=== PATIENT | male | born 1965 ===

== ENCOUNTER 2025-01-16 23:46 | Inpatient (IN) | payer OTHER, SELFPAY ==
--- NOTE | ~2025-01-16 | FL_ITS ---
EXAMINATION: XR BARIUM SWALLOW CLINICAL INFORMATION: Esophageal pain, vomiting. COMPARISON: None available. TECHNIQUE: Routine modified barium swallow was performed in upright lateral fluoroscopy following oral administration of various consistencies of barium. FINDINGS: Following oral administration of thin and thick barium in upright view under fluoroscopy there is normal but slow propagation of us from the oral cavity through the pharynx into the distal esophagus. There is moderate food residue seen in the distal esophagus. There is moderate grade narrowing seen in the distal esophagus with mild scalloping suspicious for circular/annular lesion. There is mild distention of the distal esophagus. There is abnormal mucosa mid and distal esophagus likely esophagitis. Solid food coated barium was not attenuated due to moderate food residue in distal esophagus. FLUOROSCOPY TIME: 3 minutes and 18 seconds DOSE AREA PRODUCT: 1986 uGy-m2 (microgray-meter squared) FL/FL barium swallow IMPRESSION: Moderate circumferential narrowing of distal esophagus with minimal distention suspicious for underlying lesion. There is distal and mid esophagitis suspected. The stomach is unremarkable. Recommend endoscopy for further evaluation. Electronically signed by: Bc New MD 01/22/2025 03:46 PM EDT
[2025-01-17 01:13] VITALS: BP 122/79; PULSE 89; RESP 16; TEMP 36.4; O2SAT 96
[2025-01-17 01:16] VITALS: BMI 28.8
--- NOTE | 2025-01-17 01:41 | PC.ADMIT ---
Pt is a 59yo male admitted on a CV from [facility] for treatment of SI. He presents to ED endorsing SI with plan to step into traffic and also have several medical complaints. He reports having pain in his toes, back, stomach and esophagus which he attributed to smoking crack/cocaine and drinking alcohol. Pt reports that he was staying with his daughter but had to leave. Hence, he has been on the streets, using crack/cocaine and drinking alcohol daily. He reports feeling hopeless and helpless, that no one cares about me . On unit admission, Pt was calm and pleasant, anxious and worried about his missing bag/belongings. He states they forget to bring my bag from ED at [facility]. TW called [facility] and they confirmed that Pt bag is with them. Pt declined to participate in the admission process. States I am having abdominal pain and very tired, I want to go to bed now . Pt denies SI/HI/AV/VH. He did not sign/fill any admission paper works/release of information/menu/ my contact lists/statement of understanding of valuable. Skin/safety check was unremarkable, v/s and weight/height done. Treatment plan and safety plans was initiated but yet to be signed. Hospitalist contacted for consultation. Pt reports safe on the unit.
[2025-01-17] MEDS: Magnesium Hydrox/Alum Hydrox 30 ML ORAL.SUSP PO ×2 (08:09→16:40)
[2025-01-17 08:22] VITALS: BP 159/95; PULSE 88; TEMP 36.9; O2SAT 94
[2025-01-17] MEDS: Sertraline HCL 100 MG TABLET PO (08:50)
[2025-01-17 08:57] LABS: Estimated Average Glucose 117 mg/dL; Hemoglobin A1c % 5.7 % (<6.0); Total Hemoglobin (HGBA1C) 3628.4584 umol/L
[2025-01-17] MEDS: Pantoprazole Sodium 20 MG TABLET.DR 40 MG PO ×2 (09:01→21:45)
[2025-01-17 09:05] LABS: Cholesterol 249 mg/dL (<200); HDL Cholesterol 48 mg/dL (>40); LDL Cholesterol Calculated 179 mg/dL (<100); Magnesium 2.5 mg/dL (1.6-2.6); Triglycerides 112 mg/dL (<150)
[2025-01-17 09:52] LABS: Free T4 (Free Thyroxine) 1.17 ng/dL (0.71-1.85); Thyroid Stimulating Hormone 0.36 uIU/mL (0.32-4.0)
[2025-01-17] MEDS: Ondansetron ODT 4 MG TAB.RAPDIS TRANSLINGU (10:01)
[2025-01-17 10:04] LABS: Folate 15.2 ng/mL (> or = 4.0); Vitamin B12 593 pg/mL (200-900)
[2025-01-17 10:51] LABS: MANUAL DIFF FLAG NO
[2025-01-17 10:55] LABS: Basophils Percent Auto 0.3 % (0-2); Eosinophils Absolute Auto 0.1 X10*3/uL (0.0-0.4); Eosinophils Percent Auto 1.2 % (0-4); Hematocrit 38.2 % (42.0-52.0); Hemoglobin 13.1 g/dl (14.0-18.0); Imm Gran Abs Auto 0.08 X10*3/uL (0.00-0.03); Imm Gran Pct Auto 0.7 % (0.0-0.4); Lymphocytes Absolute Auto 1.5 X10*3/uL (1.2-4.9); Mean Corpuscular HGB Conc 34.3 g/dl (31.0-36.0); Mean Corpuscular Hemoglobin 28.7 pg (27.0-33.0); Mean Corpuscular Volume 83.6 fL (80.0-98.0); Mean Platelet Volume 10.5 fL (9.4-12.4); Monocytes Percent Auto 9.4 % (2-11); Neutrophils Absolute Auto 8.1 x10*3/uL (2.0-8.3); Neutrophils Percent Auto 74.4 % (45-73); Platelet Count 391 X10*3/uL (160-400); Red Blood Count 4.57 X10*6/uL (4.60-5.80); White Blood Count 10.9 X10*3/uL (4.8-10.8)
[2025-01-17 11:03] LABS: Amylase 93 U/L (28-100)
[2025-01-17 11:10] LABS: Alanine Aminotransferase 14 U/L (0-40); Albumin Level 3.9 g/dL (3.5-5.0); Alkaline Phosphatase 114 U/L (39-117); Anion Gap 12 (12-20); Aspartate Amino Transferase 25 U/L (5-37); Bilirubin Direct 0.3 mg/dL (0.0-0.5); Bilirubin Total 1.2 mg/dL (0.0-1.0); Blood Urea Nitrogen 20 mg/dL (9-16); Carbon Dioxide 30 mmol/L (22-29); Chloride 91 mmol/L (96-108); Creatinine Clr Calc Pharmacy 110.7; Estimated Glomerular Filt Rate > 60; Glucose Random 111 mg/dL (60-115); Lipase 44 U/L (8-78); Potassium 3.3 mmol/L (3.3-5.1); Sodium 130 mmol/L (135-145); Total Protein 8.1 g/dL (6.5-8.0)
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
[2025-01-17 12:35] VITALS: BP 125/70; PULSE 82; O2SAT 98
--- NOTE | 2025-01-17 13:10 | HO.PM.IMCN ---
History of Present Illness Data of Consult Service Date: 01/17/25 Primary Care Provider: Unknown Physician HPI Reason for consult: Admission H&P Pt is a 59-year-old male with a PMH significant for?erosive esophagitis, cocaine use disorder, alcohol use disorder, GERD, and MDD who is admitted to [facility] psychiatry unit for increasing depression with plan to walk into traffic. Medical consult for admission H&P. ?Pt has been complaining of substernal chest pain and discomfort since early this morning. Has been having nausea and vomiting with p.o. intake. Also complains of hiccups and esophageal discomfort when trying to sleep. Pt apparently has been requesting antibiotics during the day as he believes this will make him feel better. Pt admits to chronic daily alcohol use prior to ED presentation, as well as smoking crack cocaine. Was not eating much prior to admission. Pt also complains of hiccups. No significant SOB or difficulty breathing. Denies fever, chills. No diarrhea. Pt denies tremors, auditory or visual hallucinations, or diaphoresis. Workup at [facility] significant for leukocytosis of 14.02, H&H 13.6/39.3, hyponatremia of 130, and potassium 3.3. CT of abdomen and pelvis negative for acute intra-abdominal pathology, though did show hiatal hernia with distal esophageal wall thickening likely reflecting reflux esophagitis. Labs from today reviewed, significant for hyponatremia of 130, mildly elevated cholesterol at 249, and elevated LDL of 179. T bili 1.2, hepatic function WNL. Renal function WNL. Vital signs reviewed, stable and WNL coli no fever or SIRS criteria. Review of Systems Review of Systems: Negative except for that which is stated in the HPI. [facility] Medical History (Updated 01/17/25 @ 20:54 by ENRIQUETA Jones) Erosive esophagitis GERD (gastroesophageal reflux disease) Social History Household Members: Children Housing: Apartment Do you presently have visiting nurse or other home services: No Patient Tobacco Use Status: Current everyday Tobacco user Tobacco use type: Cigarette Smoked in Last 30 Days: Yes e-Cigarette/Vaping Use: Never Used Patient Interested in Nicotine Replacement: Yes Patient Given Instructions on How to Stop Smoking: No Second Hand Smoke Exposure: No Use of substances other than those prescribed or required for medical reasons: Yes Substance Use Type: Crack/Cocaine Substance Use Frequency: Daily Last Used Substance: Days (ago) Currently Displaying Signs/Symptoms of Drug Intoxication Withdrawal: No (scoring 0, 2 on CIWA) Any prior treatment program specific to substance use: No Have you been hit, kicked, punched, or otherwise hurt by someone within the past year? If so, by whom?: No Do you feel safe in your current relationship?: No Is there a partner from a previous relationship who is making you feel unsafe now?: No Are you made to feel afraid or neglected: No Advance Directives: Yes Advance Directives Information Provided: Yes Advance Directives on File: No Do you have thoughts of harming others: None Do you have a plan to hurt others: No Plan Recently lost weight without trying: No Eating poorly because of decreased appetite: No Nutrition Risks: No Nutritional Risk Poor oral hygiene: No service: No Sexual orientation: Straight/Heterosexual Meds Allergies Allergy/AdvReac Type Severity Reaction Status Date / Time No Known Allergies Allergy Verified 01/16/25 23:14 Active Medications: Current Medications Acetaminophen (Acetaminophen 325 Mg Tablet) 650 mg PO Q6H PRN PRN Reason: Headache/Pain, Scale 1-10 Al Hydroxide/Mg Hydroxide (Magnesium Hydrox/Alum Hydrox 30 Ml Oral.Susp) 30 ml PO Q6H PRN PRN Reason: Heartburn/Nausea Last Admin: 01/17/25 08:09 Dose: 30 ml Baclofen (Baclofen 10 Mg Tablet) 10 mg PO BID PRN PRN Reason: withdrawal sx from cocaine Bismuth Subsalicylate (Bismuth Subsalicylate 262 Mg Tablet) 262 mg PO QID PRN PRN Reason: stomach upset Ergocalciferol (Ergocalciferol (Vitamin D2) 1,250 Mcg Capsule) 1,250 mcg PO Q7D LOU Folic Acid (Folic Acid 1 Mg Tablet) 1 mg PO DAILY LOU Last Admin: 01/17/25 09:00 Dose: Not Given Hydroxyzine HCl (Hydroxyzine Hcl 25 Mg Tablet) 25 mg PO Q6H PRN PRN Reason: mild anxiety Lorazepam (Lorazepam 1 Mg Tablet) 1 mg PO Q2H PRN PRN Reason: ciwa 6-10 Lorazepam (Lorazepam 1 Mg Tablet) 2 mg PO Q2H PRN PRN Reason: ciwa 11+ Magnesium Hydroxide (Milk Of Magnesia 30 Ml Oral.Susp) 30 ml PO DAILY PRN PRN Reason: Constipation Multivitamins/Vitamin C (Multivitamin Tablet) 1 tab PO DAILY [facility] Last Admin: 01/17/25 09:00 Dose: Not Given Nicotine Polacrilex (Nicotine Polacrilex 2 Mg Gum) 4 mg BUCCAL Q2H PRN PRN Reason: Nicotine Cravings Olanzapine (Olanzapine 5 Mg Tablet) 5 mg PO Q4H PRN PRN Reason: Agitation Ondansetron HCl (Ondansetron Odt 4 Mg Tab.Rapdis) 4 mg TRANSLINGU Q8H PRN PRN Reason: Nausea and Vomiting Ondansetron HCl (Ondansetron Odt 4 Mg Tab.Rapdis) 4 mg TRANSLINGU Q6H PRN PRN Reason: Nausea and Vomiting Last Admin: 01/17/25 10:01 Dose: 4 mg Pantoprazole Sodium (Pantoprazole Sodium 20 Mg Tablet.Dr) 40 mg PO BID [facility] Last Admin: 01/17/25 09:01 Dose: 40 mg Sertraline HCl (Sertraline Hcl 100 Mg Tablet) 100 mg PO DAILY [facility] Last Admin: 01/17/25 08:50 Dose: 100 mg Thiamine HCl (Thiamine Hcl 100 Mg Tablet) 100 mg PO DAILY [facility] Last Admin: 01/17/25 09:00 Dose: Not Given Trazodone HCl (Trazodone Hcl 50 Mg Tablet) 50 mg PO BEDTIME MRX1 PRN PRN Reason: Insomnia Home Medications ?Medication ?Instructions ?Recorded ?Confirmed ?Last Taken ?Type bismuth subsalicylate 262 mg/15 mL 262 mg PO Q6-8H PRN Stomach Upset 01/17/25 01/17/25 Unknown History oral suspension (Stomach Relief) ergocalciferol (vitamin D2) 1,250 1,250 mcg PO QWEEK 01/17/25 01/17/25 Unknown History mcg (50,000 unit) capsule esomeprazole magnesium 40 mg 40 mg PO BID 01/17/25 01/17/25 Unknown History capsule,delayed release ondansetron 4 mg disintegrating 4 mg PO Q8H PRN nausea/vomiting 01/17/25 01/17/25 Unknown History tablet sertraline 100 mg tablet 100 mg PO DAILY 01/17/25 01/17/25 Unknown History Physical Exam Vital Signs and Narrative: Vital Signs: Last Vital Signs Temp 98.4 F 01/17/25 08:22 Pulse 88 01/17/25 08:22 Resp 16 01/17/25 01:13 BP 159/95 H 01/17/25 08:22 Pulse Ox 94 01/17/25 08:22 O2 Del Method Room Air 01/17/25 08:22 BMI result Body Mass Index 28.8 General: AOx3, no acute distress Resp: CTA bilaterally CVS: S1, S2, RRR GI: +BS, NT, no distention Skin: Warm, dry Neuro: Cranial nerves II-XII grossly intact bilaterally. Motor grossly intact bilaterally. No tremors or tongue fasciculations noted. Extremities: No edema Psych: Calm, cooperative Results Labs 01/17/25 10:39 01/17/25 10:39 Labs: Laboratory Results - last 24 hr 01/17/25 01/17/25 01/17/25 08:14 10:38 10:39 MCV 83.6 MCH 28.7 MCHC 34.3 RDW 14.0 Plt Count 391 MPV 10.5 Immature Gran % (Auto) 0.7 H Neut % (Auto) 74.4 H Lymph % (Auto) 14.0 L [place] % (Auto) 9.4 Eos % (Auto) 1.2 Baso % (Auto) 0.3 Lymph # (Auto) 1.5 [place] # (Auto) 1.0 Eos # (Auto) 0.1 Baso # (Auto) 0.0 Abs Immat Gran (auto) 0.08 H Absolute Neuts (auto) 8.1 Absolute Nucleated RBC 0.000 Nucleated RBC % (auto) 0.0 Anion Gap 12 Estim Creat Clear Calc 110.7 Estimated GFR > 60 Random Glucose 111 Estimat Average Glucose 117 Hemoglobin A1c % 5.7 Calcium 9.0 Magnesium 2.5 Total Bilirubin 1.2 H Direct Bilirubin 0.3 AST 25 ALT 14 Alkaline Phosphatase 114 Total Protein 8.1 H Albumin 3.9 Triglycerides 112 Cholesterol 249 H LDL Cholesterol, Calc 179 H HDL Cholesterol 48 Amylase 93 Lipase 44 Vitamin B12 593 Folate 15.2 TSH 0.36 Free T4 1.17 Assessment and Plan (1) Medical clearance for psychiatric admission: Status: Acute Plan Pt is a 59-year-old male with a PMH significant for?erosive esophagitis, cocaine use disorder, alcohol use disorder, GERD, and MDD who is admitted to [facility] psychiatry unit for increasing depression with plan to walk into traffic. Medical consult for admission H&P. ? Mood disorder Plan as per psychiatry Acute on chronic erosive esophagitis Pt complains of substernal chest pain/burning, N/V Has been drinking heavily, smoking crack, not eating CT of abdomen pelvis on 01/16/2025 negative for acute abnormality, though did show a hiatal hernia and distal esophageal wall thickening Will treat with dual therapy of famotidine 20 mg b.i.d. and pantoprazole 40 mg b.i.d. Ondansetron Pt encouraged to drink water rather than juice for now Hyponatremia Patient's sodium 130, similar to previous labs Likely secondary to GI losses from N/V Will recheck labs on 01/19 Alcohol use disorder Does not appear to be in acute withdrawal Continue Ativan withdrawal protocol Monitor on CIWA Plan as per Addiction Medicine, Psychiatry Cocaine use disorder Plan as per Addiction Medicine, Psychiatry Thank you for allowing us to participate in the care of this patient. Signing off at this time. Please re-consult if any acute complaints or issues arise.
[2025-01-17 16:00] VITALS: BP 132/82; PULSE 88; TEMP 36.6; O2SAT 99
[2025-01-17] MEDS: LORazepam 1 MG TABLET PO ×2 (16:14→21:40)
[2025-01-17] MEDS: Famotidine 20 MG TABLET PO (19:10)
[2025-01-17] MEDS: Ondansetron ODT 8 MG TAB.RAPDIS TRANSLINGU (19:14)
[2025-01-17 19:55] VITALS: BP 131/82; PULSE 83; RESP 18; TEMP 36.9; O2SAT 98
[2025-01-17] MEDS: hydrOXYzine HCL 25 MG TABLET PO (21:41)
[2025-01-17] MEDS: traZODone HCL 50 MG TABLET PO (21:41)
[2025-01-18 07:00] VITALS: BMI 29.1
[2025-01-18 08:30] VITALS: BP 128/74; PULSE 86; RESP 16; TEMP 36.8; O2SAT 98
[2025-01-18] MEDS: Pantoprazole Sodium 20 MG TABLET.DR 40 MG PO ×2 (08:35→20:27)
[2025-01-18] MEDS: Sertraline HCL 100 MG TABLET PO (08:36)
[2025-01-18] MEDS: Famotidine 20 MG TABLET PO ×2 (08:36→20:27)
--- NOTE | 2025-01-18 08:54 | PC.NURSE ---
pt witnessed vomiting several times after receiving morning scheduled medication and eating breakfast. Pt reports 6/10 abdominal pain and denies it is related to ETOH withdrawal. Provider notified. Will continue to monitor
[2025-01-18] MEDS: Ondansetron ODT 4 MG TAB.RAPDIS TRANSLINGU ×2 (09:14→10:43)
[2025-01-18] MEDS: Baclofen 10 MG TABLET PO ×2 (09:14→18:50)
[2025-01-18] MEDS: hydrOXYzine HCL 25 MG TABLET PO ×2 (09:14→18:50)
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
[2025-01-18] MEDS: Bismuth Subsalicylate 262 MG TABLET PO ×2 (10:43→15:18)
[2025-01-18] MEDS: Magnesium Hydrox/Alum Hydrox 30 ML ORAL.SUSP PO ×3 (10:45→20:26)
[2025-01-18] MEDS: Sucralfate 1 GM TABLET PO ×2 (12:25→15:56)
[2025-01-18] MEDS: Milk of Magnesia 30 ML ORAL.SUSP PO (13:31)
--- NOTE | 2025-01-18 14:19 | PC.NURSE ---
unable to administer prochloperazine as med is not available in [place]. Called pharmacy and awaiting stock.
[2025-01-18] MEDS: Prochlorperazine Maleate 5 MG TABLET 10 MG PO (14:24)
[2025-01-18] MEDS: Acetaminophen 325 MG TABLET 650 MG PO (15:56)
[2025-01-18] MEDS: LORazepam 1 MG TABLET PO (15:56)
[2025-01-18] MEDS: oxyCODONE HCl Immed Release 5 MG TABLET PO (16:10)
[2025-01-18] MEDS: Ondansetron ODT 8 MG TAB.RAPDIS TRANSLINGU ×2 (17:07→20:27)
[2025-01-18] MEDS: OLANZapine 5 MG TABLET PO (18:50)
[2025-01-18 20:00] VITALS: BP 121/84; PULSE 84; RESP 20; TEMP 36.6; O2SAT 100
[2025-01-18] MEDS: LORazepam 1 MG TABLET 2 MG PO (20:26)
[2025-01-18] MEDS: traZODone HCL 50 MG TABLET PO (20:27)
[2025-01-19] MEDS: Sucralfate 1 GM TABLET PO (07:24)
[2025-01-19 07:54] LABS: Hematocrit 41.1 % (42.0-52.0); Hemoglobin 13.8 g/dl (14.0-18.0); Mean Corpuscular HGB Conc 33.6 g/dl (31.0-36.0); Mean Corpuscular Hemoglobin 28.8 pg (27.0-33.0); Mean Corpuscular Volume 85.8 fL (80.0-98.0); Mean Platelet Volume 11.1 fL (9.4-12.4); Platelet Count 378 X10*3/uL (160-400); Red Blood Count 4.79 X10*6/uL (4.60-5.80); Red Cell Distribution Width 13.9 % (11.0-16.0); White Blood Count 8.2 X10*3/uL (4.8-10.8)
[2025-01-19 08:00] VITALS: BP 142/91; PULSE 84; RESP 16; TEMP 36.4; O2SAT 99
[2025-01-19 08:41] LABS: Anion Gap 18 (12-20); Blood Urea Nitrogen 17 mg/dL (9-16); Carbon Dioxide 29 mmol/L (22-29); Chloride 90 mmol/L (96-108); Glucose Random 183 mg/dL (60-115); Potassium 3.2 mmol/L (3.3-5.1); Sodium 134 mmol/L (135-145)
[2025-01-19 08:49] LABS: Creatinine Clr Calc Pharmacy 69.1; Estimated Glomerular Filt Rate 54
[2025-01-19] MEDS: Famotidine 20 MG TABLET PO ×2 (08:49→19:59)
[2025-01-19] MEDS: Pantoprazole Sodium 20 MG TABLET.DR 40 MG PO ×2 (08:49→19:59)
[2025-01-19] MEDS: Magnesium Hydrox/Alum Hydrox 30 ML ORAL.SUSP PO ×3 (08:50→22:47)
[2025-01-19] MEDS: Ondansetron ODT 8 MG TAB.RAPDIS TRANSLINGU ×2 (08:52→15:06)
[2025-01-19] MEDS: Sertraline HCL 50 MG TABLET PO (09:49)
[2025-01-19] MEDS: Baclofen 10 MG TABLET PO ×3 (09:49→19:59)
[2025-01-19] MEDS: oxyCODONE HCl Immed Release 5 MG TABLET PO ×2 (10:48→19:59)
--- NOTE | 2025-01-19 12:31 | P.CNGI_ITS ---
History of Present Illness Data of Consult Service Date: 01/19/25 Primary Care Provider: Unknown Physician HPI Reason for consult: reflux and odynophagia 59-year-old male with history of MDD, PTSD, cocaine use disorder and alcohol use disorder who [facility] seeing for issues with painful swallowing Patient was initially admitted with SI He has a hx of substance abuse and taking cocaine with alcohol daily. He had also been c/o nausea, poor appetite, with burping with pain on swallowing foods and water. he also noted constipation. He said he had EGD several weeks ago for same issues and was given meds to take for 2 weeks due to an infection. Compliance is uncertain based on his history. He denies melena, rectal bleeding, or coughing with sputum. He does notice worsening GERD sx and been placed on PPI and H2 brandi in house. Review of Systems 2 Review of Systems: Constitutional : No Weight loss, No Fever, No Chills ENT/Mouth : No sore throat, No Rhinorrhea Eyes: No Swelling, No Redness Cardiovascular : No Chest Pain, No SOB, No Edema Respiratory : No Cough, No Sputum, No Wheezing Gastrointestinal : see HPI Genitourinary : NO Dysuria, No Urinary Frequency, No Hematuria, No Urgency Musculoskeletal : no joint pain, No Myalgias, No Joint Swelling Skin : No Skin Lesions, eczema ---skin adrianne hands Neuro : No Weakness, No Numbness, No Dizziness, No Headache Psych : No Anxiety/Panic, No Depression Heme/Lymph: No Bruising, No Lymphadenopathy Endocrine : No Polyuria, No Polydipsia All other systems reviewed and are negative. [facility] Past Medical History Medical History (Updated 01/18/25 @ 11:45 by Brian Rabago MD) Homeless Erosive esophagitis GERD (gastroesophageal reflux disease) Family History Pertinent family history: no fh of esophgeal disease like cancer etc Social History Social History Household Members: Children Housing: Apartment Do you presently have visiting nurse or other home services: No Patient Tobacco Use Status: Current everyday Tobacco user Tobacco use type: Cigarette Smoked in Last 30 Days: Yes e-Cigarette/Vaping Use: Never Used Patient Interested in Nicotine Replacement: Yes Patient Given Instructions on How to Stop Smoking: No Second Hand Smoke Exposure: No Use of substances other than those prescribed or required for medical reasons: Yes Substance Use Type: Crack/Cocaine Substance Use Frequency: Daily Last Used Substance: Days (ago) Currently Displaying Signs/Symptoms of Drug Intoxication Withdrawal: No Any prior treatment program specific to substance use: No Have you been hit, kicked, punched, or otherwise hurt by someone within the past year? If so, by whom?: No Do you feel safe in your current relationship?: No Is there a partner from a previous relationship who is making you feel unsafe now?: No Are you made to feel afraid or neglected: No Advance Directives: Yes Advance Directives Information Provided: Yes Advance Directives on File: No Do you have thoughts of harming others: None Do you have a plan to hurt others: No Plan Recently lost weight without trying: No Eating poorly because of decreased appetite: No Nutrition Risks: No Nutritional Risk Poor oral hygiene: No service: No Sexual orientation: Straight/Heterosexual Meds Allergies Allergy/AdvReac Type Severity Reaction Status Date / Time No Known Allergies Allergy Verified 01/16/25 23:14 Active Medications: Current Medications Acetaminophen (Acetaminophen 325 Mg Tablet) 650 mg PO Q6H PRN PRN Reason: Headache/Pain, Scale 1-10 Last Admin: 01/18/25 15:56 Dose: 650 mg Al Hydroxide/Mg Hydroxide (Magnesium Hydrox/Alum Hydrox 30 Ml Oral.Susp) 30 ml PO Q6H PRN PRN Reason: Heartburn/Nausea Last Admin: 01/19/25 08:50 Dose: 30 ml Baclofen (Baclofen 10 Mg Tablet) 10 mg PO BID PRN PRN Reason: withdrawal sx from cocaine Last Admin: 01/19/25 09:49 Dose: 10 mg Bismuth Subsalicylate (Bismuth Subsalicylate 262 Mg Tablet) 262 mg PO QID PRN PRN Reason: stomach upset Last Admin: 01/18/25 15:18 Dose: 262 mg Ergocalciferol (Ergocalciferol (Vitamin D2) 1,250 Mcg Capsule) 1,250 mcg PO Q7D [facility] Famotidine (Famotidine 20 Mg Tablet) 20 mg PO BID [facility] Last Admin: 01/19/25 08:49 Dose: 20 mg Fluconazole (Fluconazole 100 Mg Tablet) 100 mg PO DAILY [facility] Folic Acid (Folic Acid 1 Mg Tablet) 1 mg PO DAILY [facility] Last Admin: 01/19/25 08:53 Dose: Not Given Hydroxyzine HCl (Hydroxyzine Hcl 25 Mg Tablet) 25 mg PO Q6H PRN PRN Reason: mild anxiety Last Admin: 01/18/25 18:50 Dose: 25 mg Lorazepam (Lorazepam 1 Mg Tablet) 1 mg PO Q2H PRN PRN Reason: ciwa 6-10 Last Admin: 01/18/25 15:56 Dose: 1 mg Lorazepam (Lorazepam 1 Mg Tablet) 2 mg PO Q2H PRN PRN Reason: ciwa 11+ Last Admin: 01/18/25 20:26 Dose: 2 mg Magnesium Hydroxide (Milk Of Magnesia 30 Ml Oral.Susp) 30 ml PO DAILY PRN PRN Reason: Constipation Last Admin: 01/18/25 13:31 Dose: 30 ml Multivitamins/Vitamin C (Multivitamin Tablet) 1 tab PO DAILY [facility] Last Admin: 01/19/25 08:53 Dose: Not Given Nicotine Polacrilex (Nicotine Polacrilex Lozenge 4 Mg Lozenge) 4 mg BUCCAL Q2H PRN PRN Reason: Nicotine Cravings Olanzapine (Olanzapine 5 Mg Tablet) 5 mg PO Q4H PRN PRN Reason: Agitation Last Admin: 01/18/25 18:50 Dose: 5 mg Ondansetron HCl (Ondansetron Odt 8 Mg Tab.Rapdis) 8 mg TRANSLINGU Q6H PRN PRN Reason: Nausea and Vomiting Last Admin: 01/19/25 08:52 Dose: 8 mg Oxycodone HCl (Oxycodone Hcl Immed Release 5 Mg Tablet) 5 mg PO Q8H PRN PRN Reason: severe abdominal pain Pantoprazole Sodium (Pantoprazole Sodium 20 Mg Tablet.Dr) 40 mg PO BID [facility] Last Admin: 01/19/25 08:49 Dose: 40 mg Sertraline HCl (Sertraline Hcl 50 Mg Tablet) 50 mg PO DAILY [facility] Last Admin: 01/19/25 09:49 Dose: 50 mg Sucralfate (Sucralfate Oral Suspension 1 Gm/10 Ml Oral.Susp) 1 gm PO QIDACHS [facility] Thiamine HCl (Thiamine Hcl 100 Mg Tablet) 100 mg PO DAILY [facility] Last Admin: 01/19/25 08:53 Dose: Not Given Trazodone HCl (Trazodone Hcl 50 Mg Tablet) 50 mg PO BEDTIME MRX1 PRN PRN Reason: Insomnia Last Admin: 01/18/25 20:27 Dose: 50 mg Home Medications ?Medication ?Instructions ?Recorded ?Confirmed ?Last Taken ?Type bismuth subsalicylate 262 mg/15 mL 262 mg PO Q6-8H PRN Stomach Upset 01/17/25 01/17/25 Unknown History oral suspension (Stomach Relief) ergocalciferol (vitamin D2) 1,250 1,250 mcg PO QWEEK 01/17/25 01/17/25 Unknown History mcg (50,000 unit) capsule esomeprazole magnesium 40 mg 40 mg PO BID 01/17/25 01/17/25 Unknown History capsule,delayed release ondansetron 4 mg disintegrating 4 mg PO Q8H PRN nausea/vomiting 01/17/25 01/17/25 Unknown History tablet sertraline 100 mg tablet 100 mg PO DAILY 01/17/25 01/17/25 Unknown History Physical Exam 2 Vital Signs: Vital Signs: Last Vital Signs Temp 97.5 F 01/19/25 08:00 Pulse 84 01/19/25 08:00 Resp 16 01/19/25 08:00 BP 142/91 H 01/19/25 08:00 Pulse Ox 99 01/19/25 08:00 O2 Del Method Room Air 01/18/25 20:00 BMI result Body Mass Index 29.1 EXAM: GENERAL: The patient is well developed and nontoxic. VITAL SIGNS:see workflow HEENT: Nonicteric sclerae, PERRLA, EOMI. Oropharynx clear. Moist mucous membranes. Conjunctivae appear well perfused. No thyroid mass. CHEST: Chest wall is nontender. HEART: Regular rate and rhythm without murmurs. LUNGS: Clear to auscultation bilaterally. ABDOMEN: Soft, positive bowel sounds, nontender, no organomegaly.no flank tenderness SKIN: macular rash on hands NEUROLOGIC: Cranial nerves II-XII intact without motor/sensory deficit. Psych: normal affect Results Labs 01/19/25 07:20 01/19/25 07:20 Labs: Short CBC 01/19/25 Range/Units 07:20 WBC 8.2 (4.8-10.8) X10*3/uL Hgb 13.8 L (14.0-18.0) g/dl Hct 41.1 L (42.0-52.0) % Plt Count 378 (160-400) X10*3/uL BMP 01/19/25 07:20 Sodium 134 L Potassium 3.2 L Chloride 90 L Carbon Dioxide 29 BUN 17 H Creatinine 1.35 Calcium 9.0 Assessment and Plan (1) Erosive esophagitis: Status: Acute Plan 1/ Patient may have severe erosive esophagitis , possible candidiasis as well and had recent EGD in [place] for sx as noted in HPI PLAN: 1/ Recommend r/o HIV--lab ordered 2/ fluconazole for 3 weeks, 200 mg D#1 then 100 mg thereafter 3/ change to liquid sucralfate 4/ if no better in the next 3-4 days then can consider EGD vs barium swallow, meantime soft diet Procedures Date of Service Date of Service: 01/19/25
--- NOTE | 2025-01-19 13:15 | P.PNPSI_ITS ---
Subjective Subjective Date of Service: 01/19/25 Reason For Visit: Unspecified Depressive Disorder, F10.90 Alcohol Interim History: Met with patient; discussed with team; discussed with GI consult Patient remains with abdominal pain, nauseous, vomitus. Appreciate GI consult who added medications and advised; see treatment plan Patient grateful for added medication. Patient reports mood is better today and no SI at all. Patient says that when he is sober, he does well he wants to go to a program. Says he has been off medications over the past few weeks while using but normally Zoloft helps. Mental Status Exam Mental Status Exam Narrative: Pt is alert and oriented; behavior is cooperative; patient c/o abdominal pain; dressed in hospital attire, disheveled; mood is described as little better and affect congruent; eye contact appropriate; Speech is normal rate, volume and prosody and not pressured; no psychomotor agitation/retardation present; thought process is organized and goal directed; Thought content is on abdominal pain; otherwise pertinent to relevant topics and without any delusional content, paranoid ideations or grandiosity; denies any SI/HI. Denies AVH and there is no evidence of perceptual disturbance. Patients insight and judgment appear intact. Diagnostics Vital Signs (24Hr): Vital Signs - 24 hr 01/18/25 20:00 01/19/25 08:00 Temperature 97.9 F 97.5 F Pulse Rate 84 84 Respiratory Rate 20 16 Blood Pressure 121/84 142/91 H Pulse Oximetry 100 99 Oxygen Delivery Method Room Air BMI result Body Mass Index 29.1 Labs 01/19/25 07:20 01/19/25 07:20 Labs: Laboratory Results - last 48 hr 01/19/25 07:20 WBC 8.2 RBC 4.79 Hgb 13.8 L Hct 41.1 L MCV 85.8 MCH 28.8 MCHC 33.6 RDW 13.9 Plt Count 378 MPV 11.1 Absolute Nucleated RBC 0.000 Nucleated RBC % (auto) 0.0 Sodium 134 L Potassium 3.2 L Chloride 90 L Carbon Dioxide 29 Anion Gap 18 BUN 17 H Creatinine 1.35 Estim Creat Clear Calc 69.1 Estimated GFR 54 Random Glucose 183 H Calcium 9.0 Medications Medications Current Medications Acetaminophen (Acetaminophen 325 Mg Tablet) 650 mg PO Q6H PRN PRN Reason: Headache/Pain, Scale 1-10 Last Admin: 01/18/25 15:56 Dose: 650 mg Al Hydroxide/Mg Hydroxide (Magnesium Hydrox/Alum Hydrox 30 Ml Oral.Susp) 30 ml PO Q6H PRN PRN Reason: Heartburn/Nausea Last Admin: 01/19/25 08:50 Dose: 30 ml Baclofen (Baclofen 10 Mg Tablet) 10 mg PO BID PRN PRN Reason: withdrawal sx from cocaine Last Admin: 01/19/25 09:49 Dose: 10 mg Bismuth Subsalicylate (Bismuth Subsalicylate 262 Mg Tablet) 262 mg PO QID PRN PRN Reason: stomach upset Last Admin: 01/18/25 15:18 Dose: 262 mg Ergocalciferol (Ergocalciferol (Vitamin D2) 1,250 Mcg Capsule) 1,250 mcg PO Q7D [facility]OU Famotidine (Famotidine 20 Mg Tablet) 20 mg PO BID [facility] Last Admin: 01/19/25 08:49 Dose: 20 mg Fluconazole (Fluconazole 100 Mg Tablet) 100 mg PO DAILY [facility] Folic Acid (Folic Acid 1 Mg Tablet) 1 mg PO DAILY [facility] Last Admin: 01/19/25 08:53 Dose: Not Given Hydroxyzine HCl (Hydroxyzine Hcl 25 Mg Tablet) 25 mg PO Q6H PRN PRN Reason: mild anxiety Last Admin: 01/18/25 18:50 Dose: 25 mg Lorazepam (Lorazepam 1 Mg Tablet) 1 mg PO Q2H PRN PRN Reason: ciwa 6-10 Last Admin: 01/18/25 15:56 Dose: 1 mg Lorazepam (Lorazepam 1 Mg Tablet) 2 mg PO Q2H PRN PRN Reason: ciwa 11+ Last Admin: 01/18/25 20:26 Dose: 2 mg Magnesium Hydroxide (Milk Of Magnesia 30 Ml Oral.Susp) 30 ml PO DAILY PRN PRN Reason: Constipation Last Admin: 01/18/25 13:31 Dose: 30 ml Multivitamins/Vitamin C (Multivitamin Tablet) 1 tab PO DAILY [facility] Last Admin: 01/19/25 08:53 Dose: Not Given Nicotine Polacrilex (Nicotine Polacrilex Lozenge 4 Mg Lozenge) 4 mg BUCCAL Q2H PRN PRN Reason: Nicotine Cravings Olanzapine (Olanzapine 5 Mg Tablet) 5 mg PO Q4H PRN PRN Reason: Agitation Last Admin: 01/18/25 18:50 Dose: 5 mg Ondansetron HCl (Ondansetron Odt 8 Mg Tab.Rapdis) 8 mg TRANSLINGU Q6H PRN PRN Reason: Nausea and Vomiting Last Admin: 01/19/25 08:52 Dose: 8 mg Oxycodone HCl (Oxycodone Hcl Immed Release 5 Mg Tablet) 5 mg PO Q8H PRN PRN Reason: severe abdominal pain Pantoprazole Sodium (Pantoprazole Sodium 20 Mg Tablet.Dr) 40 mg PO BID [facility] Last Admin: 01/19/25 08:49 Dose: 40 mg Sertraline HCl (Sertraline Hcl 50 Mg Tablet) 50 mg PO DAILY [facility] Last Admin: 01/19/25 09:49 Dose: 50 mg Sucralfate (Sucralfate Oral Suspension 1 Gm/10 Ml Oral.Susp) 1 gm PO QIDACHS [facility] Thiamine HCl (Thiamine Hcl 100 Mg Tablet) 100 mg PO DAILY [facility] Last Admin: 01/19/25 08:53 Dose: Not Given Trazodone HCl (Trazodone Hcl 50 Mg Tablet) 50 mg PO BEDTIME MRX1 PRN PRN Reason: Insomnia Last Admin: 01/18/25 20:27 Dose: 50 mg Allergies Allergies Allergy/AdvReac Type Severity Reaction Status Date / Time No Known Allergies Allergy Verified 01/16/25 23:14 Assessment & Plan Assessment & Plan (1) MDD (major depressive disorder), recurrent episode, moderate: Status: Acute Code(s): F33.1 - Major depressive disorder, recurrent, moderate (2) PTSD (post-traumatic stress disorder): Status: Acute Code(s): F43.10 - Post-traumatic stress disorder, unspecified (3) Cocaine use disorder: Status: Acute Code(s): F14.10 - Cocaine abuse, uncomplicated (4) Alcohol use disorder: Status: Acute Code(s): F10.90 - Alcohol use, unspecified, uncomplicated (5) Erosive esophagitis: Status: Acute Code(s): K22.10 - Ulcer of esophagus without bleeding Plan HPI: Patient is a 59-year-old male with history of MDD, PTSD, cocaine use disorder and alcohol use disorder who presented to ER due to suicidal ideation with plan to walk into traffic secondary to life stressors. Per crisis report, patient presented to ER endorsing suicidal ideation with plan to step into traffic as 1 0 several medical complaints. Patient reports he has been on the streets and has been using crack/cocaine and drinking alcohol daily. Patient reports feeling hopeless and helpless. He reports his grandson and daughter the big it is 2 turns to suicide but feels that maybe they would be better off without him. Patient has a history of suicidal thoughts but denies history of attempts. Patient reports that his nephew was shot and wounded a few days ago and when he found out he had thoughts of wanting to hurt the people who did this to him but did not have a plan or intent to do so. History of multiple inpatient psychiatric hospitalizations. Patient reports he has been drinking 1- 2 pt of vodka daily and smoking 2-3 g of crack cocaine daily. U tox positive for cocaine. Patient has a prescriber via telehealth. Denies VH/AH. He reports poor sleep and appetite. During admission assessment, patient presents alert and oriented x3. Calm and cooperative. Patient reports feeling depressed; patient stated, I need to work on my depression. I need help working through my trauma . Patient reports he feels his current medications are helpful but needs to work through his trauma . He is requesting to be referred to a CSS. Denies SI/HI/VH/AH. Patient complaining of abdominal pain and acid reflux. He reports some nausea. Hospital consult placed. Hospital course: c/o abdominal pain; labs, recent CT unremarkable; possibly gastritis/esophagitis and GI consult pending given short trial oxy 5mg for abdomnial pain -mild hyponatremia likely due to vomiting 4/4 Patient remains with abdominal pain, nauseous, vomitus. Appreciate GI consult who added medications and advised; see treatment plan Patient grateful for added medication. Patient reports mood is better today and no SI at all. Patient says that when he is sober, he does well he wants to go to a program. Says he has been off medications over the past few weeks while using but normally Zoloft helps. 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 PLAN: cv q15 min lowered Zoloft to 50mg (down from 100mg) oxy prn [facility] GI consult for ongoing abdominal pain GI consult: He had also been c/o nausea, poor appetite, with burping with pain on swallowing foods and water. he also noted constipation. He said he had EGD several weeks ago for same issues and was given meds to take for 2 weeks due to an infection. Compliance is uncertain based on his history. He denies melena, rectal bleeding, or coughing with sputum. He does notice worsening GERD sx and been placed on PPI and H2 brandi in house. 1/ Patient may have severe erosive esophagitis , possible candidiasis as well and had recent EGD in [place] for sx as noted in HPI PLAN: 1/ Recommend r/o HIV--lab ordered 2/ fluconazole for 3 weeks, 200 mg D#1 then 100 mg thereafter 3/ change to liquid sucralfate 4/ if no better in the next 3-4 days then can consider EGD vs barium swallow, meantime soft diet Patient educated on: diagnosis, medication risk/benefits, substance abuse and medical condition Informed Consent: understands Reason for continued inpatient stay Substantial Risk for: rapid decompensation Time Spent With Patient Time: Total time managing care of this patient today ____ minutes.
[2025-01-19] MEDS: Potassium Chloride Packet 20 MEQ PACKET 40 MEQ PO (15:05)
[2025-01-19] MEDS: Sucralfate Oral Suspension 1 GM/10 ML ORAL.SUSP PO ×2 (17:52→19:59)
[2025-01-19 20:00] VITALS: BP 138/83; PULSE 71; RESP 16; TEMP 36.6; O2SAT 97
[2025-01-19] MEDS: Bismuth Subsalicylate 262 MG TABLET PO (22:47)
[2025-01-20 07:23] LABS: HIV AB/AG Nonreactive (Nonreactive); HIV Num 1 0.06 S/CO (0.00-0.99)
[2025-01-20 07:59] VITALS: BP 131/104; PULSE 68; RESP 16; TEMP 36.4; O2SAT 98
[2025-01-20] MEDS: Baclofen 10 MG TABLET PO ×3 (08:02→21:29)
[2025-01-20] MEDS: Famotidine 20 MG TABLET PO ×2 (08:02→21:29)
[2025-01-20] MEDS: Sertraline HCL 50 MG TABLET PO (08:02)
[2025-01-20] MEDS: Pantoprazole Sodium 20 MG TABLET.DR 40 MG PO ×2 (08:02→21:29)
[2025-01-20] MEDS: Aspirin Enteric Coated 81 MG TABLET.DR PO (08:02)
[2025-01-20] MEDS: Fluconazole 100 MG TABLET PO (08:03)
[2025-01-20] MEDS: oxyCODONE HCl Immed Release 5 MG TABLET PO ×2 (08:05→23:02)
[2025-01-20 10:23] LABS: Anion Gap 13 (12-20); Blood Urea Nitrogen 22 mg/dL (9-16); Calcium 8.9 mg/dL (8.4-10.2); Carbon Dioxide 31 mmol/L (22-29); Chloride 94 mmol/L (96-108); Creatinine Clr Calc Pharmacy 68.1; Estimated Glomerular Filt Rate 53; Glucose Random 110 mg/dL (60-115); Potassium 3.5 mmol/L (3.3-5.1); Sodium 134 mmol/L (135-145)
[2025-01-20] MEDS: Sucralfate Oral Suspension 1 GM/10 ML ORAL.SUSP PO ×3 (10:44→22:58)
--- NOTE | 2025-01-20 11:34 | PM.EVENT ---
Event Note Date of Service: 01/20/25 Event Note: Follow up for pt complaining of epigastric and esophageal pain as well as nausea and vomiting and reduced p.o. intake. Pt seen and evaluated by GI yesterday who recommended fluconazole x3 weeks, liquid sucralfate, and magic mouthwash swish and swallow p.r.n.. Labs reviewed which indicate elevated creatinine of 1.37 and mild hyponatremia of 134, likely secondary to reduced p.o. intake and GI losses from N/V. HIV nonreactive. Pt has continued to complain of 7/10 pain, burping, and vomiting with p.o. intake. Pt has been given oxycodone intermittently with minimal relief of symptoms. Continue above treatments. Will also give pt 1 L lactated Ringer's for elevated creatinine. If patient's symptoms persist for the next 2-3 days would suggest reaching back out to GI to arrange for possible EGD vs barium swallow. Time Spent With Patient Time: Total time managing care of this patient today ____ minutes.
--- NOTE | 2025-01-20 11:52 | P.PNPSI_ITS ---
Subjective Subjective Date of Service: 01/20/25 Reason For Visit: Unspecified Depressive Disorder, F10.90 Alcohol Interim History: Met with patient; discussed with team feeling a little better; belly pain remains but a little less intense; still vomiting but a little less often still with intractable hiccups which seemed to be prompting vomiting; restarting home dose of gabpentin 300mg tid since this also helps with intractable hiccups Patient's mood however is better and without any SI. Mental Status Exam Mental Status Exam Narrative: Pt is alert and oriented; behavior is cooperative; patient c/o abdominal pain; dressed in hospital attire, disheveled; mood is described as little better and affect congruent; eye contact appropriate; Speech is normal rate, volume and prosody and not pressured; no psychomotor agitation/retardation present; thought process is organized and goal directed; Thought content is on abdominal pain; otherwise pertinent to relevant topics and without any delusional content, paranoid ideations or grandiosity; denies any SI/HI. Denies AVH and there is no evidence of perceptual disturbance. Patients insight and judgment appear intact. Diagnostics Vital Signs (24Hr): Vital Signs - 24 hr 01/19/25 20:00 01/20/25 07:59 Temperature 97.8 F 97.5 F Pulse Rate 71 68 Respiratory Rate 16 16 Blood Pressure 138/83 131/104 H Pulse Oximetry 97 98 Oxygen Delivery Method Room Air Room Air BMI result Body Mass Index 29.1 Labs 01/19/25 07:20 01/20/25 10:03 Labs: Laboratory Results - last 48 hr 01/19/25 01/19/25 01/20/25 07:20 19:48 10:03 WBC 8.2 RBC 4.79 Hgb 13.8 L Hct 41.1 L MCV 85.8 MCH 28.8 MCHC 33.6 RDW 13.9 Plt Count 378 MPV 11.1 Absolute Nucleated RBC 0.000 Nucleated RBC % (auto) 0.0 Sodium 134 L 134 L Potassium 3.2 L 3.5 Chloride 90 L 94 L Carbon Dioxide 29 31 H Anion Gap 18 13 BUN 17 H 22 H Creatinine 1.35 1.37 Estim Creat Clear Calc 69.1 68.1 Estimated GFR 54 53 Random Glucose 183 H 110 Calcium 9.0 8.9 HIV 1&2 Ab/P24 Ag 4thGn Nonreactive Medications Medications Current Medications Acetaminophen (Acetaminophen 325 Mg Tablet) 650 mg PO Q6H PRN PRN Reason: Headache/Pain, Scale 1-10 Last Admin: 01/18/25 15:56 Dose: 650 mg Al Hydroxide/Mg Hydroxide (Magnesium Hydrox/Alum Hydrox 30 Ml Oral.Susp) 30 ml PO Q6H PRN PRN Reason: Heartburn/Nausea Last Admin: 01/19/25 22:47 Dose: 30 ml Aspirin (Aspirin Enteric Coated 81 Mg Tablet.Dr) 81 mg PO DAILY [facility] Last Admin: 01/20/25 08:02 Dose: 81 mg Baclofen (Baclofen 10 Mg Tablet) 10 mg PO BID PRN PRN Reason: withdrawal sx from cocaine Last Admin: 01/19/25 09:49 Dose: 10 mg Baclofen (Baclofen 10 Mg Tablet) 10 mg PO TID [facility] Stop: 01/21/25 23:00 Last Admin: 01/20/25 08:02 Dose: 10 mg Bismuth Subsalicylate (Bismuth Subsalicylate 262 Mg Tablet) 262 mg PO QID PRN PRN Reason: stomach upset Last Admin: 01/19/25 22:47 Dose: 262 mg Ergocalciferol (Ergocalciferol (Vitamin D2) 1,250 Mcg Capsule) 1,250 mcg PO Q7D [facility] Famotidine (Famotidine 20 Mg Tablet) 20 mg PO BID [facility] Last Admin: 01/20/25 08:02 Dose: 20 mg Fluconazole (Fluconazole 100 Mg Tablet) 100 mg PO DAILY [facility] Last Admin: 01/20/25 08:03 Dose: 100 mg Folic Acid (Folic Acid 1 Mg Tablet) 1 mg PO DAILY [facility] Last Admin: 01/20/25 08:04 Dose: Not Given Hydroxyzine HCl (Hydroxyzine Hcl 25 Mg Tablet) 25 mg PO Q6H PRN PRN Reason: mild anxiety Last Admin: 01/18/25 18:50 Dose: 25 mg Lactated Ringer's (Lr) 1,000 mls @ 999 mls/hr IV .Q1H1M [facility] Stop: 01/20/25 12:45 Lidocaine/Diphenhydr/Alum/Mg/Simeth (Mag&Al/Sim/Diphenhyd/Lidocaine 10 Ml Oral.Susp) 10 ml PO Q4H PRN; Protocol PRN Reason: Throat/esophageal pain Lorazepam (Lorazepam 1 Mg Tablet) 1 mg PO Q2H PRN PRN Reason: ciwa 6-10 Last Admin: 01/18/25 15:56 Dose: 1 mg Lorazepam (Lorazepam 1 Mg Tablet) 2 mg PO Q2H PRN PRN Reason: ciwa 11+ Last Admin: 01/18/25 20:26 Dose: 2 mg Magnesium Hydroxide (Milk Of Magnesia 30 Ml Oral.Susp) 30 ml PO DAILY PRN PRN Reason: Constipation Last Admin: 01/18/25 13:31 Dose: 30 ml Multivitamins/Vitamin C (Multivitamin Tablet) 1 tab PO DAILY [facility] Last Admin: 01/20/25 08:06 Dose: Not Given Nicotine Polacrilex (Nicotine Polacrilex Lozenge 4 Mg Lozenge) 4 mg BUCCAL Q2H PRN PRN Reason: Nicotine Cravings Olanzapine (Olanzapine 5 Mg Tablet) 5 mg PO Q4H PRN PRN Reason: Agitation Last Admin: 01/18/25 18:50 Dose: 5 mg Ondansetron HCl (Ondansetron Odt 8 Mg Tab.Rapdis) 8 mg TRANSLINGU Q6H PRN PRN Reason: Nausea and Vomiting Last Admin: 01/19/25 15:06 Dose: 8 mg Oxycodone HCl (Oxycodone Hcl Immed Release 5 Mg Tablet) 5 mg PO Q8H PRN PRN Reason: severe abdominal pain Last Admin: 01/20/25 08:05 Dose: 5 mg Pantoprazole Sodium (Pantoprazole Sodium 20 Mg Tablet.Dr) 40 mg PO BID [facility] Last Admin: 01/20/25 08:02 Dose: 40 mg Sertraline HCl (Sertraline Hcl 50 Mg Tablet) 50 mg PO DAILY [facility] Last Admin: 01/20/25 08:02 Dose: 50 mg Sucralfate (Sucralfate Oral Suspension 1 Gm/10 Ml Oral.Susp) 1 gm PO QIDACHS [facility] Last Admin: 01/20/25 10:44 Dose: 1 gm Thiamine HCl (Thiamine Hcl 100 Mg Tablet) 100 mg PO DAILY [facility] Last Admin: 01/20/25 08:07 Dose: Not Given Trazodone HCl (Trazodone Hcl 50 Mg Tablet) 50 mg PO BEDTIME MRX1 PRN PRN Reason: Insomnia Last Admin: 01/18/25 20:27 Dose: 50 mg Allergies Allergies Allergy/AdvReac Type Severity Reaction Status Date / Time No Known Allergies Allergy Verified 01/16/25 23:14 Assessment & Plan Assessment & Plan (1) MDD (major depressive disorder), recurrent episode, moderate: Status: Acute Code(s): F33.1 - Major depressive disorder, recurrent, moderate (2) PTSD (post-traumatic stress disorder): Status: Acute Code(s): F43.10 - Post-traumatic stress disorder, unspecified (3) Cocaine use disorder: Status: Acute Code(s): F14.10 - Cocaine abuse, uncomplicated (4) Alcohol use disorder: Status: Acute Code(s): F10.90 - Alcohol use, unspecified, uncomplicated (5) Erosive esophagitis: Status: Acute Code(s): K22.10 - Ulcer of esophagus without bleeding Plan HPI: Patient is a 59-year-old male with history of MDD, PTSD, cocaine use disorder and alcohol use disorder who presented to ER due to suicidal ideation with plan to walk into traffic secondary to life stressors. Per crisis report, patient presented to ER endorsing suicidal ideation with plan to step into traffic as 1 0 several medical complaints. Patient reports he has been on the streets and has been using crack/cocaine and drinking alcohol daily. Patient reports feeling hopeless and helpless. He reports his grandson and daughter the big it is 2 turns to suicide but feels that maybe they would be better off without him. Patient has a history of suicidal thoughts but denies history of attempts. Patient reports that his nephew was shot and wounded a few days ago and when he found out he had thoughts of wanting to hurt the people who did this to him but did not have a plan or intent to do so. History of multiple inpatient psychiatric hospitalizations. Patient reports he has been drinking 1- 2 pt of vodka daily and smoking 2-3 g of crack cocaine daily. U tox positive for cocaine. Patient has a prescriber via telehealth. Denies VH/AH. He reports poor sleep and appetite. During admission assessment, patient presents alert and oriented x3. Calm and cooperative. Patient reports feeling depressed; patient stated, I need to work on my depression. I need help working through my trauma . Patient reports he feels his current medications are helpful but needs to work through his trauma . He is requesting to be referred to a CSS. Denies SI/HI/VH/AH. Patient complaining of abdominal pain and acid reflux. He reports some nausea. Hospital consult placed. Hospital course: c/o abdominal pain; labs, recent CT unremarkable; possibly gastritis/esophagitis and GI consult pending given short trial oxy 5mg for abdomnial pain -mild hyponatremia likely due to vomiting 4/ Patient remains with abdominal pain, nauseous, vomitus. Appreciate GI consult who added medications and advised; see treatment plan Patient grateful for added medication. Patient reports mood is better today and no SI at all. Patient says that when he is sober, he does well he wants to go to a program. Says he has been off medications over the past few weeks while using but normally Zoloft helps. 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 4/ feeling a little better; belly pain remains but a little less intense; still vomiting but a little less often still with intractable hiccups which seemed to be prompting vomiting; restarting home dose of gabpentin 300mg tid since this also helps with intractable hiccups Patient's mood however is better and without any SI. PLAN: cv q15 min lowered Zoloft to 50mg (down from 100mg) oxy prn [facility] GI consult for ongoing abdominal pain GI consult: He had also been c/o nausea, poor appetite, with burping with pain on swallowing foods and water. he also noted constipation. He said he had EGD several weeks ago for same issues and was given meds to take for 2 weeks due to an infection. Compliance is uncertain based on his history. He denies melena, rectal bleeding, or coughing with sputum. He does notice worsening GERD sx and been placed on PPI and H2 brandi in house. 1/ Patient may have severe erosive esophagitis , possible candidiasis as well and had recent EGD in [place] for sx as noted in HPI PLAN: 2/ fluconazole for 3 weeks, 200 mg D#1 then 100 mg thereafter 3/ change to liquid sucralfate 4/ if no better in the next 3-4 days then can consider EGD vs barium swallow, meantime soft diet Patient educated on: diagnosis, medication risk/benefits, substance abuse and medical condition Informed Consent: understands Reason for continued inpatient stay Substantial Risk for: rapid decompensation Time Spent With Patient Time: Total time managing care of this patient today ____ minutes.
[2025-01-20] MEDS: Lactated Ringers 1,000 ML 999 ML IV (12:40)
[2025-01-20] MEDS: Gabapentin 300 MG CAPSULE PO ×3 (13:21→21:29)
[2025-01-20 20:00] VITALS: BP 128/70; PULSE 62; RESP 16; TEMP 36.4; O2SAT 96
[2025-01-20] MEDS: Bismuth Subsalicylate 262 MG TABLET PO (22:58)
[2025-01-21] MEDS: oxyCODONE HCl Immed Release 5 MG TABLET PO (07:36)
[2025-01-21] MEDS: Sucralfate Oral Suspension 1 GM/10 ML ORAL.SUSP PO ×4 (07:55→21:14)
[2025-01-21 07:59] VITALS: BP 139/77; PULSE 77; RESP 16; TEMP 36.4; O2SAT 99
[2025-01-21] MEDS: Baclofen 10 MG TABLET PO ×3 (08:07→20:14)
[2025-01-21] MEDS: Sertraline HCL 100 MG TABLET PO (08:07)
[2025-01-21] MEDS: Pantoprazole Sodium 20 MG TABLET.DR 40 MG PO ×2 (08:07→20:15)
[2025-01-21] MEDS: Gabapentin 300 MG CAPSULE PO ×3 (08:07→20:15)
[2025-01-21] MEDS: Aspirin Enteric Coated 81 MG TABLET.DR PO (08:07)
[2025-01-21] MEDS: Fluconazole 100 MG TABLET PO (08:08)
[2025-01-21] MEDS: Famotidine 20 MG TABLET PO ×2 (08:08→20:15)
[2025-01-21] MEDS: Nicotine Polacrilex Lozenge 4 MG LOZENGE BUCCAL (08:10)
--- NOTE | 2025-01-21 11:28 | P.PNPSI_ITS ---
Subjective Subjective Date of Service: 01/21/25 Reason For Visit: Unspecified Depressive Disorder, F10.90 Alcohol Interim History: Met with patient; discussed with team Patient continues to complain of abdominal pain, hiccupping and vomiting however all are less than they were; he finds that whenever he eats, he starts getting hiccups which induces vomiting. Discussed diet and to start avoiding greasy food such as sausage in hamburgers which patient is ordered; he agrees to try a bland diet for now. Finds that gabapentin has helped reduce the hiccuping overall however which is encouraging. Patient wants help with substance abuse and would like a program. Patient remains in good behavioral and impulse control and appropriate with peers and staff . Mental Status Exam Mental Status Exam Narrative: Pt is alert and oriented; behavior is cooperative; patient c/o abdominal pain; dressed in hospital attire, towel on his head; mood is described as little better and affect congruent, a little brighter; eye contact appropriate; Speech is normal rate, volume and prosody and not pressured; no psychomotor agitation/retardation present; thought process is organized and goal directed; Thought content is on abdominal pain; otherwise pertinent to relevant topics and without any delusional content, paranoid ideations or grandiosity; denies any SI/HI. Denies AVH and there is no evidence of perceptual disturbance. Patients insight and judgment fair Diagnostics Vital Signs (24Hr): Vital Signs - 24 hr 01/20/25 20:00 01/21/25 07:59 Temperature 97.5 F 97.5 F Pulse Rate 62 77 Respiratory Rate 16 16 Blood Pressure 128/70 139/77 Pulse Oximetry 96 99 Oxygen Delivery Method Room Air Room Air BMI result Body Mass Index 29.1 Labs 01/19/25 07:20 01/20/25 10:03 Labs: Laboratory Results - last 48 hr 01/19/25 01/20/25 19:48 10:03 Sodium 134 L Potassium 3.5 Chloride 94 L Carbon Dioxide 31 H Anion Gap 13 BUN 22 H Creatinine 1.37 Estim Creat Clear Calc 68.1 Estimated GFR 53 Random Glucose 110 Calcium 8.9 HIV 1&2 Ab/P24 Ag 4thGn Nonreactive Medications Medications Current Medications Acetaminophen (Acetaminophen 325 Mg Tablet) 650 mg PO Q6H PRN PRN Reason: Headache/Pain, Scale 1-10 Last Admin: 01/18/25 15:56 Dose: 650 mg Al Hydroxide/Mg Hydroxide (Magnesium Hydrox/Alum Hydrox 30 Ml Oral.Susp) 30 ml PO Q6H PRN PRN Reason: Heartburn/Nausea Last Admin: 01/19/25 22:47 Dose: 30 ml Aspirin (Aspirin Enteric Coated 81 Mg Tablet.Dr) 81 mg PO DAILY [facility] Last Admin: 01/21/25 08:07 Dose: 81 mg Baclofen (Baclofen 10 Mg Tablet) 10 mg PO BID PRN PRN Reason: withdrawal sx from cocaine Last Admin: 01/19/25 09:49 Dose: 10 mg Baclofen (Baclofen 10 Mg Tablet) 10 mg PO TID [facility] Stop: 01/21/25 23:00 Last Admin: 01/21/25 08:07 Dose: 10 mg Bismuth Subsalicylate (Bismuth Subsalicylate 262 Mg Tablet) 262 mg PO QID PRN PRN Reason: stomach upset Last Admin: 01/20/25 22:58 Dose: 262 mg Ergocalciferol (Ergocalciferol (Vitamin D2) 1,250 Mcg Capsule) 1,250 mcg PO Q7D [facility] Last Admin: 01/21/25 09:55 Dose: Not Given Famotidine (Famotidine 20 Mg Tablet) 20 mg PO BID [facility] Last Admin: 01/21/25 08:08 Dose: 20 mg Fluconazole (Fluconazole 100 Mg Tablet) 100 mg PO DAILY [facility] Last Admin: 01/21/25 08:08 Dose: 100 mg Gabapentin (Gabapentin 300 Mg Capsule) 300 mg PO TID [facility] Last Admin: 01/21/25 08:07 Dose: 300 mg Hydroxyzine HCl (Hydroxyzine Hcl 25 Mg Tablet) 25 mg PO Q6H PRN PRN Reason: mild anxiety Last Admin: 01/18/25 18:50 Dose: 25 mg Lidocaine/Diphenhydr/Alum/Mg/Simeth (Mag&Al/Sim/Diphenhyd/Lidocaine 10 Ml Oral.Susp) 10 ml PO Q4H PRN; Protocol PRN Reason: Throat/esophageal pain Magnesium Hydroxide (Milk Of Magnesia 30 Ml Oral.Susp) 30 ml PO DAILY PRN PRN Reason: Constipation Last Admin: 01/18/25 13:31 Dose: 30 ml Nicotine Polacrilex (Nicotine Polacrilex Lozenge 4 Mg Lozenge) 4 mg BUCCAL Q2H PRN PRN Reason: Nicotine Cravings Last Admin: 01/21/25 08:10 Dose: 4 mg Olanzapine (Olanzapine 5 Mg Tablet) 5 mg PO Q4H PRN PRN Reason: Agitation Last Admin: 01/18/25 18:50 Dose: 5 mg Ondansetron HCl (Ondansetron Odt 8 Mg Tab.Rapdis) 8 mg TRANSLINGU Q6H PRN PRN Reason: Nausea and Vomiting Last Admin: 01/19/25 15:06 Dose: 8 mg Oxycodone HCl (Oxycodone Hcl Immed Release 5 Mg Tablet) 5 mg PO Q8H PRN PRN Reason: severe abdominal pain Last Admin: 01/21/25 07:36 Dose: 5 mg Pantoprazole Sodium (Pantoprazole Sodium 20 Mg Tablet.Dr) 40 mg PO BID [facility] Last Admin: 01/21/25 08:07 Dose: 40 mg Sertraline HCl (Sertraline Hcl 100 Mg Tablet) 100 mg PO DAILY [facility] Last Admin: 01/21/25 08:07 Dose: 100 mg Sucralfate (Sucralfate Oral Suspension 1 Gm/10 Ml Oral.Susp) 1 gm PO QIDACHS [facility] Last Admin: 01/21/25 10:51 Dose: 1 gm Trazodone HCl (Trazodone Hcl 50 Mg Tablet) 50 mg PO BEDTIME MRX1 PRN PRN Reason: Insomnia Last Admin: 01/18/25 20:27 Dose: 50 mg Allergies Allergies Allergy/AdvReac Type Severity Reaction Status Date / Time No Known Allergies Allergy Verified 01/16/25 23:14 Assessment & Plan Assessment & Plan (1) MDD (major depressive disorder), recurrent episode, moderate: Status: Acute Code(s): F33.1 - Major depressive disorder, recurrent, moderate (2) PTSD (post-traumatic stress disorder): Status: Acute Code(s): F43.10 - Post-traumatic stress disorder, unspecified (3) Cocaine use disorder: Status: Acute Code(s): F14.10 - Cocaine abuse, uncomplicated (4) Alcohol use disorder: Status: Acute Code(s): F10.90 - Alcohol use, unspecified, uncomplicated (5) Erosive esophagitis: Status: Acute Code(s): K22.10 - Ulcer of esophagus without bleeding Plan HPI: Patient is a 59-year-old male with history of MDD, PTSD, cocaine use disorder and alcohol use disorder who presented to ER due to suicidal ideation with plan to walk into traffic secondary to life stressors. Per crisis report, patient presented to ER endorsing suicidal ideation with plan to step into traffic as 1 0 several medical complaints. Patient reports he has been on the streets and has been using crack/cocaine and drinking alcohol daily. Patient reports feeling hopeless and helpless. He reports his grandson and daughter the big it is 2 turns to suicide but feels that maybe they would be better off without him. Patient has a history of suicidal thoughts but denies history of attempts. Patient reports that his nephew was shot and wounded a few days ago and when he found out he had thoughts of wanting to hurt the people who did this to him but did not have a plan or intent to do so. History of multiple inpatient psychiatric hospitalizations. Patient reports he has been drinking 1- 2 pt of vodka daily and smoking 2-3 g of crack cocaine daily. U tox positive for cocaine. Patient has a prescriber via telehealth. Denies VH/AH. He reports poor sleep and appetite. During admission assessment, patient presents alert and oriented x3. Calm and cooperative. Patient reports feeling depressed; patient stated, I need to work on my depression. I need help working through my trauma . Patient reports he feels his current medications are helpful but needs to work through his trauma . He is requesting to be referred to a CSS. Denies SI/HI/VH/AH. Patient complaining of abdominal pain and acid reflux. He reports some nausea. Hospital consult placed. Hospital course: c/o abdominal pain; labs, recent CT unremarkable; possibly gastritis/esophagitis and GI consult pending given short trial oxy 5mg for abdomnial pain -mild hyponatremia likely due to vomiting 4/ Patient remains with abdominal pain, nauseous, vomitus. Appreciate GI consult who added medications and advised; see treatment plan Patient grateful for added medication. Patient reports mood is better today and no SI at all. Patient says that when he is sober, he does well he wants to go to a program. Says he has been off medications over the past few weeks while using but normally Zoloft helps. 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 4/ feeling a little better; belly pain remains but a little less intense; still vomiting but a little less often still with intractable hiccups which seemed to be prompting vomiting; restarting home dose of gabpentin 300mg tid since this also helps with intractable hiccups Patient's mood however is better and without any SI. -HIV--lab ordered: neg -sodium level improved; hospitalist ENRIQUETA ordered IV fluids with lactated Ringer's 01/21 Patient continues to complain of abdominal pain, hiccupping and vomiting however all are less than they were; he finds that whenever he eats, he starts getting hiccups which induces vomiting. Discussed diet and to start avoiding greasy food such as sausage in hamburgers which patient is ordered; he agrees to try a bland diet for now. Finds that gabapentin has helped reduce the hiccuping overall however which is encouraging. Patient wants help with substance abuse and would like a program. -discussed oxycodone and patient agrees to discontinue given that it could be contributing to abdominal pain Patient remains in good behavioral and impulse control and appropriate with peers and staff PLAN: cv q15 min Continue Zoloft to 50mg (down from 100mg); will titrate once abdominal discomfort resolves Continue baclofen 10 mg t.i.d. for hiccups Continue gabapentin 300 mg t.i.d.; patient on this as an outpatient but also helping with hiccups Restarted aspirin 81 mg which he is on as an outpatient; although this could potentially aggravate stomach lining, its enteric coated and benefit outweighs risk DC Oxy DC [facility] GI consult: He had also been c/o nausea, poor appetite, with burping with pain on swallowing foods and water. he also noted constipation. He said he had EGD several weeks ago for same issues and was given meds to take for 2 weeks due to an infection. Compliance is uncertain based on his history. He denies melena, rectal bleeding, or coughing with sputum. He does notice worsening GERD sx and been placed on PPI and H2 brandi in house. 1/ Patient may have severe erosive esophagitis , possible candidiasis as well and had recent EGD in [place] for sx as noted in HPI PLAN: 2/ fluconazole for 3 weeks, 200 mg D#1 then 100 mg thereafter 3/ change to liquid sucralfate 4/ if no better in the next 3-4 days then can consider EGD vs barium swallow, meantime soft diet Patient educated on: diagnosis, medication risk/benefits, substance abuse and medical condition Informed Consent: understands Reason for continued inpatient stay Substantial Risk for: rapid decompensation Time Spent With Patient Time: Total time managing care of this patient today ____ minutes.
[2025-01-21] MEDS: Ergocalciferol (Vitamin D2) 1,250 MCG CAPSULE 1250 MCG PO (12:12)
--- NOTE | 2025-01-21 19:02 | PM.EVENT ---
Event Note Date of Service: 01/21/25 Event Note: Pt is a 59-year-old admitted to [facility]. Briefly met with pt again who reports symptoms are better today. Has been able to tolerate some p.o. intake of both fluids and solids. However, has still had some nausea and vomiting as well as persistent esophageal pain. Spoke to GI who noted that pt had a recent EGD performed a few weeks ago and does not recommend repeat procedure. GI instead recommends a normal, non modified barium swallow on Wednesday for further evaluation. Time Spent With Patient Time: Total time managing care of this patient today ____ minutes.
[2025-01-21 19:51] VITALS: BP 115/69; PULSE 85; RESP 15; TEMP 36.3; O2SAT 98
[2025-01-21] MEDS: traZODone HCL 50 MG TABLET PO (20:14)
[2025-01-22] MEDS: Magnesium Hydrox/Alum Hydrox 30 ML ORAL.SUSP PO (02:30)
[2025-01-22] MEDS: hydrOXYzine HCL 25 MG TABLET PO (02:37)
[2025-01-22] MEDS: traZODone HCL 50 MG TABLET PO (02:37)
[2025-01-22] MEDS: Ondansetron ODT 8 MG TAB.RAPDIS TRANSLINGU (02:37)
[2025-01-22] MEDS: Sucralfate Oral Suspension 1 GM/10 ML ORAL.SUSP PO ×2 (07:40→16:34)
[2025-01-22 07:54] VITALS: BP 186/78; PULSE 77; RESP 16; TEMP 36.5; O2SAT 97
[2025-01-22] MEDS: Sertraline HCL 100 MG TABLET PO (08:08)
[2025-01-22] MEDS: Pantoprazole Sodium 20 MG TABLET.DR 40 MG PO ×2 (08:08→20:37)
[2025-01-22] MEDS: Famotidine 20 MG TABLET PO ×2 (08:08→20:37)
[2025-01-22] MEDS: Gabapentin 300 MG CAPSULE PO ×3 (08:08→20:37)
[2025-01-22] MEDS: Aspirin Enteric Coated 81 MG TABLET.DR PO (08:08)
[2025-01-22] MEDS: Fluconazole 100 MG TABLET PO (08:08)
--- NOTE | 2025-01-22 12:04 | HO.PSYCHPN ---
Subjective Subjective Date of Service: 01/22/25 Reason For Visit: Unspecified Depressive Disorder, F10.90 Alcohol Interim History: Met with patient; discussed with team Pain remains but less; discussed oxycodone and patient feels he can do fine without it and asks for it to be discontinued. Mood is better. He wants a program ambivalent about which type. Patient had barium swallow today looking like erosive esophagitis; discussed with GI who is ordering upper endoscopy Mental Status Exam Mental Status Exam Narrative: Pt is alert and oriented; behavior is cooperative; patient c/o abdominal pain; dressed in hospital attire, towel on his head; mood is described as little better and affect congruent, a little brighter; eye contact appropriate; Speech is normal rate, volume and prosody and not pressured; no psychomotor agitation/retardation present; thought process is organized and goal directed; Thought content is on abdominal pain; otherwise pertinent to relevant topics and without any delusional content, paranoid ideations or grandiosity; denies any SI/HI. Denies AVH and there is no evidence of perceptual disturbance. Patients insight and judgment fair Diagnostics Vital Signs (24Hr): Vital Signs - 24 hr 01/21/25 19:51 01/22/25 07:54 Temperature 97.4 F 97.7 F Pulse Rate 85 77 Respiratory Rate 15 16 Blood Pressure 115/69 186/78 H Pulse Oximetry 98 97 Oxygen Delivery Method Room Air BMI result Body Mass Index 29.1 Labs 01/19/25 07:20 01/20/25 10:03 Medications Medications Current Medications Acetaminophen (Acetaminophen 325 Mg Tablet) 650 mg PO Q6H PRN PRN Reason: Headache/Pain, Scale 1-10 Last Admin: 01/18/25 15:56 Dose: 650 mg Al Hydroxide/Mg Hydroxide (Magnesium Hydrox/Alum Hydrox 30 Ml Oral.Susp) 30 ml PO Q6H PRN PRN Reason: Heartburn/Nausea Last Admin: 01/22/25 02:30 Dose: 30 ml Aspirin (Aspirin Enteric Coated 81 Mg Tablet.) 81 mg PO DAILY [facility] Last Admin: 01/22/25 08:08 Dose: 81 mg Bismuth Subsalicylate (Bismuth Subsalicylate 262 Mg Tablet) 262 mg PO QID PRN PRN Reason: stomach upset Last Admin: 01/20/25 22:58 Dose: 262 mg Ergocalciferol (Ergocalciferol (Vitamin D2) 1,250 Mcg Capsule) 1,250 mcg PO Q7D [facility] Last Admin: 01/21/25 12:12 Dose: 1,250 mcg Famotidine (Famotidine 20 Mg Tablet) 20 mg PO BID [facility] Last Admin: 01/22/25 08:08 Dose: 20 mg Fluconazole (Fluconazole 100 Mg Tablet) 100 mg PO DAILY [facility] Last Admin: 01/22/25 08:08 Dose: 100 mg Gabapentin (Gabapentin 300 Mg Capsule) 300 mg PO TID [facility] Last Admin: 01/22/25 08:08 Dose: 300 mg Hydroxyzine HCl (Hydroxyzine Hcl 25 Mg Tablet) 25 mg PO Q6H PRN PRN Reason: mild anxiety Last Admin: 01/22/25 02:37 Dose: 25 mg Lidocaine/Diphenhydr/Alum/Mg/Simeth (Mag&Al/Sim/Diphenhyd/Lidocaine 10 Ml Oral.Susp) 10 ml PO Q4H PRN; Protocol PRN Reason: Throat/esophageal pain Magnesium Hydroxide (Milk Of Magnesia 30 Ml Oral.Susp) 30 ml PO DAILY PRN PRN Reason: Constipation Last Admin: 01/18/25 13:31 Dose: 30 ml Nicotine Polacrilex (Nicotine Polacrilex Lozenge 4 Mg Lozenge) 4 mg BUCCAL Q2H PRN PRN Reason: Nicotine Cravings Last Admin: 01/21/25 08:10 Dose: 4 mg Ondansetron HCl (Ondansetron Odt 8 Mg Tab.Rapdis) 8 mg TRANSLINGU Q6H PRN PRN Reason: Nausea and Vomiting Last Admin: 01/22/25 02:37 Dose: 8 mg Pantoprazole Sodium (Pantoprazole Sodium 20 Mg Tablet.Dr) 40 mg PO BID [facility] Last Admin: 01/22/25 08:08 Dose: 40 mg Sertraline HCl (Sertraline Hcl 100 Mg Tablet) 100 mg PO DAILY [facility] Last Admin: 01/22/25 08:08 Dose: 100 mg Sucralfate (Sucralfate Oral Suspension 1 Gm/10 Ml Oral.Susp) 1 gm PO QIDACHS [facility] Last Admin: 01/22/25 11:48 Dose: Not Given Trazodone HCl (Trazodone Hcl 50 Mg Tablet) 50 mg PO BEDTIME MRX1 PRN PRN Reason: Insomnia Last Admin: 01/22/25 02:37 Dose: 50 mg Allergies Allergies Allergy/AdvReac Type Severity Reaction Status Date / Time No Known Allergies Allergy Verified 01/16/25 23:14 Assessment & Plan Assessment & Plan (1) MDD (major depressive disorder), recurrent episode, moderate: Status: Acute Code(s): F33.1 - Major depressive disorder, recurrent, moderate (2) PTSD (post-traumatic stress disorder): Status: Acute Code(s): F43.10 - Post-traumatic stress disorder, unspecified (3) Cocaine use disorder: Status: Acute Code(s): F14.10 - Cocaine abuse, uncomplicated (4) Alcohol use disorder: Status: Acute Code(s): F10.90 - Alcohol use, unspecified, uncomplicated (5) Erosive esophagitis: Status: Acute Code(s): K22.10 - Ulcer of esophagus without bleeding Plan HPI: Patient is a 59-year-old male with history of MDD, PTSD, cocaine use disorder and alcohol use disorder who presented to ER due to suicidal ideation with plan to walk into traffic secondary to life stressors. Per crisis report, patient presented to ER endorsing suicidal ideation with plan to step into traffic as 1 0 several medical complaints. Patient reports he has been on the streets and has been using crack/cocaine and drinking alcohol daily. Patient reports feeling hopeless and helpless. He reports his grandson and daughter the big it is 2 turns to suicide but feels that maybe they would be better off without him. Patient has a history of suicidal thoughts but denies history of attempts. Patient reports that his nephew was shot and wounded a few days ago and when he found out he had thoughts of wanting to hurt the people who did this to him but did not have a plan or intent to do so. History of multiple inpatient psychiatric hospitalizations. Patient reports he has been drinking 1-2 pt of vodka daily and smoking 2-3 g of crack cocaine daily. U tox positive for cocaine. Patient has a prescriber via telehealth. Denies VH/AH. He reports poor sleep and appetite. During admission assessment, patient presents alert and oriented x3. Calm and cooperative. Patient reports feeling depressed; patient stated, I need to work on my depression. I need help working through my trauma . Patient reports he feels his current medications are helpful but needs to work through his trauma . He is requesting to be referred to a CSS. Denies SI/HI/VH/AH. Patient complaining of abdominal pain and acid reflux. He reports some nausea. Hospital consult placed. Hospital course: c/o abdominal pain; labs, recent CT unremarkable; possibly gastritis/esophagitis and GI consult pending given short trial oxy 5mg for abdomnial pain -mild hyponatremia likely due to vomiting 01/19 Patient remains with abdominal pain, nauseous, vomitus. Appreciate GI consult who added medications and advised; see treatment plan Patient grateful for added medication. Patient reports mood is better today and no SI at all. Patient says that when he is sober, he does well he wants to go to a program. Says he has been off medications over the past few weeks while using but normally Zoloft helps. 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 01/20 feeling a little better; belly pain remains but a little less intense; still vomiting but a little less often still with intractable hiccups which seemed to be prompting vomiting; restarting home dose of gabpentin 300mg tid since this also helps with intractable hiccups Patient's mood however is better and without any SI. -HIV--lab ordered: neg -sodium level improved; hospitalist ENRIQUETA ordered IV fluids with lactated Ringer's 01/21 Patient continues to complain of abdominal pain, hiccupping and vomiting however all are less than they were; he finds that whenever he eats, he starts getting hiccups which induces vomiting. Discussed diet and to start avoiding greasy food such as sausage in hamburgers which patient is ordered; he agrees to try a bland diet for now. Finds that gabapentin has helped reduce the hiccuping overall however which is encouraging. Patient wants help with substance abuse and would like a program. -discussed oxycodone and patient agrees to discontinue given that it could be contributing to abdominal pain 01/22 abd Pain, N/V and hiccups remains but less; discussed oxycodone and patient feels he can do fine without it and asks for it to be discontinued. Mood is better. He wants a program ambivalent about which type. Patient had barium swallow today looking like erosive esophagitis; discussed with GI who is ordering upper endoscopy Patient remains in good behavioral and impulse control and appropriate with peers and staff PLAN: cv EGD NPO tonight q15 min Continue Zoloft to 50mg (down from 100mg); will titrate once abdominal discomfort resolves Continue baclofen 10 mg t.i.d. for hiccups Continue gabapentin 300 mg t.i.d.; patient on this as an outpatient but also helping with hiccups Restarted aspirin 81 mg which he is on as an outpatient; although this could potentially aggravate stomach lining, its enteric coated and benefit outweighs risk DC Oxy DC [facility] GI consult: He had also been c/o nausea, poor appetite, with burping with pain on swallowing foods and water. he also noted constipation. He said he had EGD several weeks ago for same issues and was given meds to take for 2 weeks due to an infection. Compliance is uncertain based on his history. He denies melena, rectal bleeding, or coughing with sputum. He does notice worsening GERD sx and been placed on PPI and H2 brandi in house. 1/ Patient may have severe erosive esophagitis , possible candidiasis as well and had recent EGD in [place] for sx as noted in HPI PLAN: 2/ fluconazole for 3 weeks, 200 mg D#1 then 100 mg thereafter 3/ change to liquid sucralfate 4/ if no better in the next 3-4 days then can consider EGD vs barium swallow, meantime soft diet Patient educated on: diagnosis and medication risk/benefits Informed Consent: understands Reason for continued inpatient stay Substantial Risk for: stable for discharge Time Spent With Patient Time: Total time managing care of this patient today ____ minutes.
[2025-01-22 12:12] VITALS: BP 136/65; PULSE 78; RESP 18; TEMP 36.3; O2SAT 99
--- NOTE | 2025-01-22 18:31 | PM.EVENT ---
Event Note Date of Service: 01/22/25 Event Note: Follow up for pt admitted to [facility] who underwent barium swallow this morning, which showed moderate circumferential narrowing of distal esophagus with minimal distention suspicious for underlying lesion. There was also suspicion for distal and mid esophagitis. Spoke to GI who will try to schedule inpatient EGD tomorrow. Will make pt NPO after midnight. Time Spent With Patient Time: Total time managing care of this patient today ____ minutes.
[2025-01-22 20:30] VITALS: BP 120/61; PULSE 80; RESP 16; TEMP 36.4; O2SAT 99
[2025-01-23 08:00] VITALS: BP 113/68; PULSE 58; TEMP 36.5; O2SAT 98
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
--- NOTE | 2025-01-23 09:56 | PC.NURSE ---
Per Dr Rabago, hold meds until after procedure.
--- NOTE | 2025-01-23 10:45 | PC.NURSE ---
Pt currently at short-stay on the 2nd floor. Waiting for his endoscopy. Morning meds to be administered when pt is back per Dr Rabago.
[2025-01-23] MEDS: Pantoprazole Sodium 20 MG TABLET.DR 40 MG PO ×2 (12:42→15:58)
[2025-01-23] MEDS: Famotidine 20 MG TABLET PO ×2 (12:42→20:53)
[2025-01-23] MEDS: Sertraline HCL 100 MG TABLET PO (12:42)
[2025-01-23] MEDS: Sucralfate Oral Suspension 1 GM/10 ML ORAL.SUSP PO ×3 (12:42→20:53)
[2025-01-23] MEDS: Aspirin Enteric Coated 81 MG TABLET.DR PO (12:42)
[2025-01-23] MEDS: Fluconazole 100 MG TABLET PO (12:43)
[2025-01-23] MEDS: Gabapentin 300 MG CAPSULE PO ×3 (12:43→20:53)
--- NOTE | 2025-01-23 12:52 | PC.NURSE ---
All AM meds administered at 12:45. Dr Rabago aware.
[2025-01-23] MEDS: Magnesium Hydrox/Alum Hydrox 30 ML ORAL.SUSP PO (18:36)
[2025-01-23 20:00] VITALS: BP 137/92; PULSE 65; TEMP 36.6; O2SAT 98
[2025-01-23] MEDS: Lidocaine 4 % Patch ADH..PATCH 1 PATCH TRANSDERMA (20:52)
[2025-01-24] MEDS: Mag&Al/Sim/Diphenhyd/Lidocaine 10 ML ORAL.SUSP PO (03:53)
[2025-01-24] MEDS: Pantoprazole Sodium 20 MG TABLET.DR 40 MG PO ×2 (07:07→17:01)
[2025-01-24] MEDS: Sucralfate Oral Suspension 1 GM/10 ML ORAL.SUSP PO ×4 (08:18→20:39)
[2025-01-24] MEDS: Sertraline HCL 100 MG TABLET PO (08:19)
[2025-01-24] MEDS: Aspirin Enteric Coated 81 MG TABLET.DR PO (08:19)
[2025-01-24] MEDS: Famotidine 20 MG TABLET PO ×2 (08:19→20:40)
[2025-01-24] MEDS: Fluconazole 100 MG TABLET PO (08:19)
[2025-01-24] MEDS: Gabapentin 300 MG CAPSULE PO ×3 (08:19→20:40)
[2025-01-24 08:54] VITALS: BP 157/91; PULSE 60; TEMP 36.3; O2SAT 99
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
--- NOTE | 2025-01-24 16:40 | PM.EVENT ---
Event Note Date of Service: 01/24/25 Event Note: EGD operative notes reviewed Per GI: Continue high dose ppi x 3 months- pantoprazole 40mg bid ordered. Outpt follow up 3 months to determine titration [place] mouthwash BID x 2 weeks Continue fluconazole 200mg x1 and then 100mg daily x 21 doses total. HIV negative Bx pending Repeat EGD in 3-4 months. Outpt follow up as above Further recommendations per gastroenterology Thank you for allowing me to participate in this consult. Signing off at this time. Please do not hesitate to call for further questions or for any acute medical issues Time Spent With Patient Time: Total time managing care of this patient today ____ minutes.
[2025-01-24 19:36] VITALS: BP 127/72; PULSE 85; RESP 18; TEMP 36.6; O2SAT 99
[2025-01-24] MEDS: hydrOXYzine HCL 25 MG TABLET PO (20:39)
[2025-01-24] MEDS: traZODone HCL 50 MG TABLET PO (20:39)
[2025-01-25] MEDS: Pantoprazole Sodium 20 MG TABLET.DR 40 MG PO ×2 (06:23→16:51)
[2025-01-25 07:00] VITALS: BMI 30.4
[2025-01-25 07:47] VITALS: BP 121/66; PULSE 75; TEMP 36.8; O2SAT 100
[2025-01-25] MEDS: Sucralfate Oral Suspension 1 GM/10 ML ORAL.SUSP PO ×4 (08:09→21:05)
[2025-01-25] MEDS: Sertraline HCL 100 MG TABLET PO (09:04)
[2025-01-25] MEDS: Famotidine 20 MG TABLET PO ×2 (09:04→21:04)
[2025-01-25] MEDS: Gabapentin 300 MG CAPSULE PO ×3 (09:04→21:04)
[2025-01-25] MEDS: Fluconazole 100 MG TABLET PO (09:04)
[2025-01-25] MEDS: Aspirin Enteric Coated 81 MG TABLET.DR PO (09:05)
--- NOTE | 2025-01-25 09:32 | HO.PSYCHPN ---
Subjective Subjective Date of Service: 01/25/25 Reason For Visit: Unspecified Depressive Disorder, F10.90 Alcohol Interim History: met with patient; discussed with team remains in good mood and future focused on getting into [facility]. Mental Status Exam Mental Status Exam Narrative: Pt is alert and oriented; behavior is cooperative, friendly, calm; dressed in hospital attire, towel on his head; mood is described as good and affect congruent, bright, calm; eye contact appropriate; Speech is normal rate, volume and prosody and not pressured; no psychomotor agitation/retardation present; thought process is organized and goal directed; Thought content is on aftercare plans; otherwise pertinent to relevant topics and without any delusional content, paranoid ideations or grandiosity; denies any SI/HI. Denies AVH and there is no evidence of perceptual disturbance. Patients insight and judgment fair Diagnostics Vital Signs (24Hr): Vital Signs - 24 hr 01/24/25 19:36 01/25/25 07:47 Temperature 98 F 98.2 F Pulse Rate 85 75 Respiratory Rate 18 Blood Pressure 127/72 121/66 Pulse Oximetry 99 100 Oxygen Delivery Method Room Air Room Air BMI result Body Mass Index 29.1 Labs 01/19/25 07:20 01/20/25 10:03 Imaging Radiology Impressions: ITS Impressions Barium Swallow X-Ray 01/21/25 10:30 IMPRESSION: Moderate circumferential narrowing of distal esophagus with minimal distention suspicious for underlying lesion. There is distal and mid esophagitis suspected. The stomach is unremarkable. Recommend endoscopy for further evaluation. Electronically signed by: Bc New MD 01/22/2025 03:46 PM EDT Medications Medications Current Medications Acetaminophen (Acetaminophen 325 Mg Tablet) 650 mg PO Q6H PRN PRN Reason: Headache/Pain, Scale 1-10 Last Admin: 01/18/25 15:56 Dose: 650 mg Al Hydroxide/Mg Hydroxide (Magnesium Hydrox/Alum Hydrox 30 Ml Oral.Susp) 30 ml PO Q6H PRN PRN Reason: Heartburn/Nausea Last Admin: 01/23/25 18:36 Dose: 30 ml Aspirin (Aspirin Enteric Coated 81 Mg Tablet.) 81 mg PO DAILY LOU Last Admin: 01/25/25 09:05 Dose: 81 mg Bismuth Subsalicylate (Bismuth Subsalicylate 262 Mg Tablet) 262 mg PO QID PRN PRN Reason: stomach upset Last Admin: 01/20/25 22:58 Dose: 262 mg Ergocalciferol (Ergocalciferol (Vitamin D2) 1,250 Mcg Capsule) 1,250 mcg PO Q7D [facility] Famotidine (Famotidine 20 Mg Tablet) 20 mg PO BID [facility] Last Admin: 01/25/25 09:04 Dose: 20 mg Fluconazole (Fluconazole 100 Mg Tablet) 100 mg PO DAILY LOU Stop: 02/12/25 09:01 Last Admin: 01/25/25 09:04 Dose: 100 mg Gabapentin (Gabapentin 300 Mg Capsule) 300 mg PO TID [facility] Last Admin: 01/25/25 09:04 Dose: 300 mg Hydroxyzine HCl (Hydroxyzine Hcl 25 Mg Tablet) 25 mg PO Q6H PRN PRN Reason: mild anxiety Last Admin: 01/24/25 20:39 Dose: 25 mg Lidocaine (Lidocaine 4 % Patch Adh..Patch) 1 patch TRANSDERMA DAILY PRN; Protocol PRN Reason: lower back pain Last Admin: 01/23/25 20:52 Dose: 1 patch Lidocaine/Diphenhydr/Alum/Mg/Simeth (Mag&Al/Sim/Diphenhyd/Lidocaine 10 Ml Oral.Susp) 10 ml PO Q4H PRN; Protocol PRN Reason: Throat/esophageal pain Last Admin: 01/24/25 03:53 Dose: 10 ml Magnesium Hydroxide (Milk Of Magnesia 30 Ml Oral.Susp) 30 ml PO DAILY PRN PRN Reason: Constipation Last Admin: 01/18/25 13:31 Dose: 30 ml Nicotine Polacrilex (Nicotine Polacrilex Lozenge 4 Mg Lozenge) 4 mg BUCCAL Q2H PRN PRN Reason: Nicotine Cravings Last Admin: 01/21/25 08:10 Dose: 4 mg Ondansetron HCl (Ondansetron Odt 8 Mg Tab.Rapdis) 8 mg TRANSLINGU Q6H PRN PRN Reason: Nausea and Vomiting Last Admin: 01/22/25 02:37 Dose: 8 mg Pantoprazole Sodium (Pantoprazole Sodium 20 Mg Tablet.Dr) 40 mg PO BID@0630,1630 [facility] Last Admin: 01/25/25 06:23 Dose: 40 mg Sertraline HCl (Sertraline Hcl 100 Mg Tablet) 100 mg PO DAILY [facility] Last Admin: 01/25/25 09:04 Dose: 100 mg Sucralfate (Sucralfate Oral Suspension 1 Gm/10 Ml Oral.Susp) 1 gm PO QIDACHS [facility] Last Admin: 01/25/25 08:09 Dose: 1 gm Trazodone HCl (Trazodone Hcl 50 Mg Tablet) 50 mg PO BEDTIME MRX1 PRN PRN Reason: Insomnia Last Admin: 01/24/25 20:39 Dose: 50 mg Allergies Allergies Allergy/AdvReac Type Severity Reaction Status Date / Time No Known Allergies Allergy Verified 01/16/25 23:14 Assessment & Plan Assessment & Plan (1) MDD (major depressive disorder), recurrent episode, moderate: Status: Acute Code(s): F33.1 - Major depressive disorder, recurrent, moderate (2) PTSD (post-traumatic stress disorder): Status: Acute Code(s): F43.10 - Post-traumatic stress disorder, unspecified (3) Cocaine use disorder: Status: Acute Code(s): F14.10 - Cocaine abuse, uncomplicated (4) Alcohol use disorder: Status: Acute Code(s): F10.90 - Alcohol use, unspecified, uncomplicated (5) Erosive esophagitis: Status: Acute Code(s): K22.10 - Ulcer of esophagus without bleeding (6) Fungal ulcer of esophagus: Status: Acute Code(s): K22.10 - Ulcer of esophagus without bleeding Plan HPI: Patient is a 59-year-old male with history of MDD, PTSD, cocaine use disorder and alcohol use disorder who presented to ER due to suicidal ideation with plan to walk into traffic secondary to life stressors. Per crisis report, patient presented to ER endorsing suicidal ideation with plan to step into traffic as 1 0 several medical complaints. Patient reports he has been on the streets and has been using crack/cocaine and drinking alcohol daily. Patient reports feeling hopeless and helpless. He reports his grandson and daughter the big it is 2 turns to suicide but feels that maybe they would be better off without him. Patient has a history of suicidal thoughts but denies history of attempts. Patient reports that his nephew was shot and wounded a few days ago and when he found out he had thoughts of wanting to hurt the people who did this to him but did not have a plan or intent to do so. History of multiple inpatient psychiatric hospitalizations. Patient reports he has been drinking 1-2 pt of vodka daily and smoking 2-3 g of crack cocaine daily. U tox positive for cocaine. Patient has a prescriber via telehealth. Denies VH/AH. He reports poor sleep and appetite. During admission assessment, patient presents alert and oriented x3. Calm and cooperative. Patient reports feeling depressed; patient stated, I need to work on my depression. I need help working through my trauma . Patient reports he feels his current medications are helpful but needs to work through his trauma . He is requesting to be referred to a CSS. Denies SI/HI/VH/AH. Patient complaining of abdominal pain and acid reflux. He reports some nausea. Hospital consult placed. Hospital course: c/o abdominal pain; labs, recent CT unremarkable; possibly gastritis/esophagitis and GI consult pending given short trial oxy 5mg for abdomnial pain -mild hyponatremia likely due to vomiting 01/19 Patient remains with abdominal pain, nauseous, vomitus. Appreciate GI consult who added medications and advised; see treatment plan Patient grateful for added medication. Patient reports mood is better today and no SI at all. Patient says that when he is sober, he does well he wants to go to a program. Says he has been off medications over the past few weeks while using but normally Zoloft helps. 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 / feeling a little better; belly pain remains but a little less intense; still vomiting but a little less often still with intractable hiccups which seemed to be prompting vomiting; restarting home dose of gabpentin 300mg tid since this also helps with intractable hiccups Patient's mood however is better and without any SI. -HIV--lab ordered: neg -sodium level improved; hospitalist ENRIQUETA ordered IV fluids with lactated Ringer's 01/21 Patient continues to complain of abdominal pain, hiccupping and vomiting however all are less than they were; he finds that whenever he eats, he starts getting hiccups which induces vomiting. Discussed diet and to start avoiding greasy food such as sausage in hamburgers which patient is ordered; he agrees to try a bland diet for now. Finds that gabapentin has helped reduce the hiccuping overall however which is encouraging. Patient wants help with substance abuse and would like a program. -discussed oxycodone and patient agrees to discontinue given that it could be contributing to abdominal pain 01/22 abd Pain, N/V and hiccups remains but less; discussed oxycodone and patient feels he can do fine without it and asks for it to be discontinued. Mood is better. He wants a program ambivalent about which type. Patient had barium swallow today looking like erosive esophagitis; discussed with GI who is ordering upper endoscopy 01/23 Patient overall doing better; hiccups, abdominal pain remain but resolving; patient still wants program but thinking about 1 around [place]. Patient had EGD and diagnosis is severe esophagitis and patient should continue with current medication regimen. 01/24 pt doing better and abdominal issue resolved; mood is good and pt discussing aftercare options discussed substance abuse and pt does not want MAT; says does not have cravings and relapse happens when he's with family/friends offering. Pt does not want tx program, but rather wants to work out sobriety on his own. 01/25 continue tx plan Medically stable; Patient remains in good behavioral and impulse control and engaged in treatment PLAN: cv q15 min Continue Protonix 40 mg b.i.d. Continue famotidine 20 mg b.i.d. continue sulfulcrate Continue fluconazole for esophageal fungal infection increased to Zoloft to 100mg (home dose); Continue baclofen 10 mg t.i.d. for hiccups Continue gabapentin 300 mg t.i.d.; patient on this as an outpatient but also helping with hiccups Restarted aspirin 81 mg which he is on as an outpatient; although this could potentially aggravate stomach lining, its enteric coated and benefit outweighs risk DC Oxy DC CIWA esophagitis , candidiasis - fluconazole for 3 weeks, 200 mg D#1 then 100 mg thereafter - change to liquid sucralfate - PPI Patient educated on: diagnosis, medication risk/benefits and medical condition Informed Consent: understands Reason for continued inpatient stay Substantial Risk for: stable for discharge Time Spent With Patient Time: Total time managing care of this patient today ____ minutes.
[2025-01-25 20:00] VITALS: BP 146/67; RESP 18; TEMP 36.5; O2SAT 99
[2025-01-25] MEDS: hydrOXYzine HCL 25 MG TABLET PO (21:05)
[2025-01-25] MEDS: traZODone HCL 50 MG TABLET PO (21:05)
[2025-01-25] MEDS: diphenhydrAMINE HCl 2 % Cream 28 GM TUBE 1 APPL TOPICAL (21:06)
[2025-01-26] MEDS: Pantoprazole Sodium 20 MG TABLET.DR 40 MG PO ×2 (06:37→16:28)
[2025-01-26 08:18] VITALS: BP 119/58; PULSE 75; RESP 16; TEMP 36.9; O2SAT 100
[2025-01-26] MEDS: Sucralfate Oral Suspension 1 GM/10 ML ORAL.SUSP PO ×3 (08:41→20:38)
[2025-01-26] MEDS: Sertraline HCL 100 MG TABLET PO (08:41)
[2025-01-26] MEDS: Aspirin Enteric Coated 81 MG TABLET.DR PO (08:41)
[2025-01-26] MEDS: Famotidine 20 MG TABLET PO ×2 (08:41→20:37)
[2025-01-26] MEDS: Fluconazole 100 MG TABLET PO (08:41)
[2025-01-26] MEDS: Gabapentin 300 MG CAPSULE PO ×3 (08:41→20:37)
[2025-01-26] MEDS: diphenhydrAMINE HCl 2 % Cream 28 GM TUBE 1 APPL TOPICAL ×2 (11:12→20:43)
--- NOTE | 2025-01-26 13:13 | HO.PSYCHPN ---
Subjective Subjective Date of Service: 01/26/25 Reason For Visit: Unspecified Depressive Disorder, F10.90 Alcohol Interim History: Active on unit. social with peers. pt reports feeling alright today; pt stated, I'm stressed and depressed but I'm alright. I'm waiting to get out of this place . pt reports he is looking forward to discharge. denies SI/HI/VH/AH. Medication Compliance: Yes Side effects from medications: No Mental Status Exam Mental Status Exam Patient Appearance: Appropriate Patient Orientation: Person, Place, Time and Situation Level of Consciousness: Awake and Alert Patient Behavior: Appropriate and Cooperative Mood Description: Calm Affect Description: Calm Ability to Follow Directions: Good Speech Pattern: Clear and Appropriate Memory Description: Intact Hallucinations: None Delusions: Not Present Thought Process: Intact Thought Content: positive for Intact Diagnostics Vital Signs (24Hr): Vital Signs - 24 hr 01/25/25 20:00 01/26/25 08:18 Temperature 97.7 F 98.5 F Pulse Rate 75 Respiratory Rate 18 16 Blood Pressure 146/67 H 119/58 L Pulse Oximetry 99 100 Oxygen Delivery Method Room Air Room Air BMI result Body Mass Index 30.4 Labs 01/19/25 07:20 01/20/25 10:03 Imaging Radiology Impressions: ITS Impressions Barium Swallow X-Ray 01/21/25 10:30 IMPRESSION: Moderate circumferential narrowing of distal esophagus with minimal distention suspicious for underlying lesion. There is distal and mid esophagitis suspected. The stomach is unremarkable. Recommend endoscopy for further evaluation. Electronically signed by: Bc New MD 01/22/2025 03:46 PM EDT Medications Medications Current Medications Acetaminophen (Acetaminophen 325 Mg Tablet) 650 mg PO Q6H PRN PRN Reason: Headache/Pain, Scale 1-10 Last Admin: 01/18/25 15:56 Dose: 650 mg Al Hydroxide/Mg Hydroxide (Magnesium Hydrox/Alum Hydrox 30 Ml Oral.Susp) 30 ml PO Q6H PRN PRN Reason: Heartburn/Nausea Last Admin: 01/23/25 18:36 Dose: 30 ml Aspirin (Aspirin Enteric Coated 81 Mg Tablet.) 81 mg PO DAILY LOU Last Admin: 01/26/25 08:41 Dose: 81 mg Bismuth Subsalicylate (Bismuth Subsalicylate 262 Mg Tablet) 262 mg PO QID PRN PRN Reason: stomach upset Last Admin: 01/20/25 22:58 Dose: 262 mg Ergocalciferol (Ergocalciferol (Vitamin D2) 1,250 Mcg Capsule) 1,250 mcg PO Q7D [facility] Famotidine (Famotidine 20 Mg Tablet) 20 mg PO BID [facility] Last Admin: 01/26/25 08:41 Dose: 20 mg Fluconazole (Fluconazole 100 Mg Tablet) 100 mg PO DAILY [facility] Stop: 02/12/25 09:01 Last Admin: 01/26/25 08:41 Dose: 100 mg Gabapentin (Gabapentin 300 Mg Capsule) 300 mg PO TID [facility] Last Admin: 01/26/25 08:41 Dose: 300 mg Hydroxyzine HCl (Hydroxyzine Hcl 25 Mg Tablet) 25 mg PO Q6H PRN PRN Reason: mild anxiety Last Admin: 01/25/25 21:05 Dose: 25 mg Lidocaine (Lidocaine 4 % Patch Adh..Patch) 1 patch TRANSDERMA DAILY PRN; Protocol PRN Reason: lower back pain Last Admin: 01/23/25 20:52 Dose: 1 patch Lidocaine/Diphenhydr/Alum/Mg/Simeth (Mag&Al/Sim/Diphenhyd/Lidocaine 10 Ml Oral.Susp) 10 ml PO Q4H PRN; Protocol PRN Reason: Throat/esophageal pain Last Admin: 01/24/25 03:53 Dose: 10 ml Magnesium Hydroxide (Milk Of Magnesia 30 Ml Oral.Susp) 30 ml PO DAILY PRN PRN Reason: Constipation Last Admin: 01/18/25 13:31 Dose: 30 ml Nicotine Polacrilex (Nicotine Polacrilex Lozenge 4 Mg Lozenge) 4 mg BUCCAL Q2H PRN PRN Reason: Nicotine Cravings Last Admin: 01/21/25 08:10 Dose: 4 mg Ondansetron HCl (Ondansetron Odt 8 Mg Tab.Rapdis) 8 mg TRANSLINGU Q6H PRN PRN Reason: Nausea and Vomiting Last Admin: 01/22/25 02:37 Dose: 8 mg Pantoprazole Sodium (Pantoprazole Sodium 20 Mg Tablet.Dr) 40 mg PO BID@0630,1630 [facility] Last Admin: 01/26/25 06:37 Dose: 40 mg Sertraline HCl (Sertraline Hcl 100 Mg Tablet) 100 mg PO DAILY [facility] Last Admin: 01/26/25 08:41 Dose: 100 mg Sucralfate (Sucralfate Oral Suspension 1 Gm/10 Ml Oral.Susp) 1 gm PO QIDACHS [facility] Last Admin: 01/26/25 08:41 Dose: 1 gm Trazodone HCl (Trazodone Hcl 50 Mg Tablet) 50 mg PO BEDTIME MRX1 PRN PRN Reason: Insomnia Last Admin: 01/25/25 21:05 Dose: 50 mg Zinc Acetate/Diphenhydramine (Diphenhydramine Hcl 2 % Cream 28 Gm Tube) 1 appl TOPICAL TID PRN PRN Reason: itching on arms Last Admin: 01/26/25 11:12 Dose: 1 appl Allergies Allergies Allergy/AdvReac Type Severity Reaction Status Date / Time No Known Allergies Allergy Verified 01/16/25 23:14 Assessment & Plan Assessment & Plan (1) MDD (major depressive disorder), recurrent episode, moderate: Status: Acute Code(s): F33.1 - Major depressive disorder, recurrent, moderate (2) PTSD (post-traumatic stress disorder): Status: Acute Code(s): F43.10 - Post-traumatic stress disorder, unspecified (3) Cocaine use disorder: Status: Acute Code(s): F14.10 - Cocaine abuse, uncomplicated (4) Alcohol use disorder: Status: Acute Code(s): F10.90 - Alcohol use, unspecified, uncomplicated (5) Erosive esophagitis: Status: Acute Code(s): K22.10 - Ulcer of esophagus without bleeding (6) Fungal ulcer of esophagus: Status: Acute Code(s): K22.10 - Ulcer of esophagus without bleeding Plan HPI: Patient is a 59-year-old male with history of MDD, PTSD, cocaine use disorder and alcohol use disorder who presented to ER due to suicidal ideation with plan to walk into traffic secondary to life stressors. Per crisis report, patient presented to ER endorsing suicidal ideation with plan to step into traffic as 1 0 several medical complaints. Patient reports he has been on the streets and has been using crack/cocaine and drinking alcohol daily. Patient reports feeling hopeless and helpless. He reports his grandson and daughter the big it is 2 turns to suicide but feels that maybe they would be better off without him. Patient has a history of suicidal thoughts but denies history of attempts. Patient reports that his nephew was shot and wounded a few days ago and when he found out he had thoughts of wanting to hurt the people who did this to him but did not have a plan or intent to do so. History of multiple inpatient psychiatric hospitalizations. Patient reports he has been drinking 1-2 pt of vodka daily and smoking 2-3 g of crack cocaine daily. U tox positive for cocaine. Patient has a prescriber via telehealth. Denies VH/AH. He reports poor sleep and appetite. During admission assessment, patient presents alert and oriented x3. Calm and cooperative. Patient reports feeling depressed; patient stated, I need to work on my depression. I need help working through my trauma . Patient reports he feels his current medications are helpful but needs to work through his trauma . He is requesting to be referred to a CSS. Denies SI/HI/VH/AH. Patient complaining of abdominal pain and acid reflux. He reports some nausea. Hospital consult placed. Hospital course: c/o abdominal pain; labs, recent CT unremarkable; possibly gastritis/esophagitis and GI consult pending given short trial oxy 5mg for abdomnial pain -mild hyponatremia likely due to vomiting 01/19 Patient remains with abdominal pain, nauseous, vomitus. Appreciate GI consult who added medications and advised; see treatment plan Patient grateful for added medication. Patient reports mood is better today and no SI at all. Patient says that when he is sober, he does well he wants to go to a program. Says he has been off medications over the past few weeks while using but normally Zoloft helps. 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 01/20 feeling a little better; belly pain remains but a little less intense; still vomiting but a little less often still with intractable hiccups which seemed to be prompting vomiting; restarting home dose of gabpentin 300mg tid since this also helps with intractable hiccups Patient's mood however is better and without any SI. -HIV--lab ordered: neg -sodium level improved; hospitalist ENRIQUETA ordered IV fluids with lactated Ringer's 01/21 Patient continues to complain of abdominal pain, hiccupping and vomiting however all are less than they were; he finds that whenever he eats, he starts getting hiccups which induces vomiting. Discussed diet and to start avoiding greasy food such as sausage in hamburgers which patient is ordered; he agrees to try a bland diet for now. Finds that gabapentin has helped reduce the hiccuping overall however which is encouraging. Patient wants help with substance abuse and would like a program. -discussed oxycodone and patient agrees to discontinue given that it could be contributing to abdominal pain 01/22 abd Pain, N/V and hiccups remains but less; discussed oxycodone and patient feels he can do fine without it and asks for it to be discontinued. Mood is better. He wants a program ambivalent about which type. Patient had barium swallow today looking like erosive esophagitis; discussed with GI who is ordering upper endoscopy 01/23 Patient overall doing better; hiccups, abdominal pain remain but resolving; patient still wants program but thinking about 1 around [place]. Patient had EGD and diagnosis is severe esophagitis and patient should continue with current medication regimen. 01/24 pt doing better and abdominal issue resolved; mood is good and pt discussing aftercare options discussed substance abuse and pt does not want MAT; says does not have cravings and relapse happens when he's with family/friends offering. Pt does not want tx program, but rather wants to work out sobriety on his own. 01/25 continue tx plan 01/26: continue current tx plan. Medically stable; Patient remains in good behavioral and impulse control and engaged in treatment PLAN: cv q15 min Continue Protonix 40 mg b.i.d. Continue famotidine 20 mg b.i.d. continue sulfulcrate Continue fluconazole for esophageal fungal infection increased to Zoloft to 100mg (home dose); Continue baclofen 10 mg t.i.d. for hiccups Continue gabapentin 300 mg t.i.d.; patient on this as an outpatient but also helping with hiccups Restarted aspirin 81 mg which he is on as an outpatient; although this could potentially aggravate stomach lining, its enteric coated and benefit outweighs risk DC Oxy DC CIWA esophagitis , candidiasis - fluconazole for 3 weeks, 200 mg D#1 then 100 mg thereafter - change to liquid sucralfate - PPI Patient educated on: medication risk/benefits Reason for continued inpatient stay Substantial Risk for: med/psych decompensation Time Spent With Patient Time: Total time managing care of this patient today _10___ minutes.
[2025-01-26] MEDS: Lidocaine 4 % Patch ADH..PATCH 1 PATCH TRANSDERMA (18:01)
[2025-01-26 20:00] VITALS: BP 163/78; PULSE 73; TEMP 36.5; O2SAT 100
[2025-01-27] MEDS: Pantoprazole Sodium 20 MG TABLET.DR 40 MG PO ×2 (07:21→15:37)
[2025-01-27 07:59] VITALS: BP 134/78; PULSE 73; RESP 18; TEMP 36.8; O2SAT 98
--- NOTE | 2025-01-27 08:04 | HO.PSYCHPN ---
Subjective Subjective Date of Service: 01/27/25 Reason For Visit: Unspecified Depressive Disorder, F10.90 Alcohol Subjective Notes: Conditional Voluntary Healthcare Proxy: No Guardianship: No Medical Problems Affecting Mental Status: No Interim History: 59 yo with substance use disorder and depression, reports he is doing fine , until I mentioned dc wednesday and he says that depressed him cause he didn't know- feels scared to be dced without anywhere to stay= reviewing notes there were prior notes yesterday where he said was looking forward to dc- and hopes to go to [facility]- but nothing is set up - Medication Compliance: Yes Side effects from medications: No Attending Groups: Yes Review of Systems Acute medical concerns: No Medical Review of Systems: unchanged Mental Status Exam Mental Status Exam Patient Appearance: Appropriate (though wearing towel over head) Patient Orientation: Person, Place, Time and Situation Level of Consciousness: Awake Patient Behavior: Appropriate and Cooperative Behavior Comments: told me I depressed him over possible dc that he would possibly be dced even if there was not a place for him to go Mood Description: Calm and Sad Affect Description: Appropriate and Constricted Patient Cognition Impaired: No Ability to Follow Directions: Fair Speech Pattern: Clear Hallucinations: None Delusions: Not Present Thought Process: Intact Thought Content: positive for Intact and positive for Goal Oriented Judgement: Fair Diagnostics Vital Signs (24Hr): Vital Signs - 24 hr 01/26/25 08:18 01/26/25 20:00 01/27/25 07:59 Temperature 98.5 F 97.7 F 98.2 F Pulse Rate 75 73 73 Respiratory Rate 16 18 Blood Pressure 119/58 L 163/78 H 134/78 Pulse Oximetry 100 100 98 Oxygen Delivery Method Room Air Room Air Room Air BMI result Body Mass Index 30.4 Labs 01/19/25 07:20 01/20/25 10:03 Imaging Radiology Impressions: ITS Impressions Barium Swallow X-Ray 01/21/25 10:30 IMPRESSION: Moderate circumferential narrowing of distal esophagus with minimal distention suspicious for underlying lesion. There is distal and mid esophagitis suspected. The stomach is unremarkable. Recommend endoscopy for further evaluation. Electronically signed by: Bc New MD 01/22/2025 03:46 PM EDT Medications Medications Current Medications Acetaminophen (Acetaminophen 325 Mg Tablet) 650 mg PO Q6H PRN PRN Reason: Headache/Pain, Scale 1-10 Last Admin: 01/18/25 15:56 Dose: 650 mg Al Hydroxide/Mg Hydroxide (Magnesium Hydrox/Alum Hydrox 30 Ml Oral.Susp) 30 ml PO Q6H PRN PRN Reason: Heartburn/Nausea Last Admin: 01/23/25 18:36 Dose: 30 ml Aspirin (Aspirin Enteric Coated 81 Mg Tablet.Dr) 81 mg PO DAILY [facility] Last Admin: 01/26/25 08:41 Dose: 81 mg Bismuth Subsalicylate (Bismuth Subsalicylate 262 Mg Tablet) 262 mg PO QID PRN PRN Reason: stomach upset Last Admin: 01/20/25 22:58 Dose: 262 mg Ergocalciferol (Ergocalciferol (Vitamin D2) 1,250 Mcg Capsule) 1,250 mcg PO Q7D [facility] Famotidine (Famotidine 20 Mg Tablet) 20 mg PO BID [facility] Last Admin: 01/26/25 20:37 Dose: 20 mg Fluconazole (Fluconazole 100 Mg Tablet) 100 mg PO DAILY [facility] Stop: 02/12/25 09:01 Last Admin: 01/26/25 08:41 Dose: 100 mg Gabapentin (Gabapentin 300 Mg Capsule) 300 mg PO TID [facility] Last Admin: 01/26/25 20:37 Dose: 300 mg Hydroxyzine HCl (Hydroxyzine Hcl 25 Mg Tablet) 25 mg PO Q6H PRN PRN Reason: mild anxiety Last Admin: 01/25/25 21:05 Dose: 25 mg Lidocaine (Lidocaine 4 % Patch Adh..Patch) 1 patch TRANSDERMA DAILY PRN; Protocol PRN Reason: lower back pain Last Admin: 01/26/25 18:01 Dose: 1 patch Lidocaine/Diphenhydr/Alum/Mg/Simeth (Mag&Al/Sim/Diphenhyd/Lidocaine 10 Ml Oral.Susp) 10 ml PO Q4H PRN; Protocol PRN Reason: Throat/esophageal pain Last Admin: 01/24/25 03:53 Dose: 10 ml Magnesium Hydroxide (Milk Of Magnesia 30 Ml Oral.Susp) 30 ml PO DAILY PRN PRN Reason: Constipation Last Admin: 01/18/25 13:31 Dose: 30 ml Nicotine Polacrilex (Nicotine Polacrilex Lozenge 4 Mg Lozenge) 4 mg BUCCAL Q2H PRN PRN Reason: Nicotine Cravings Last Admin: 01/21/25 08:10 Dose: 4 mg Ondansetron HCl (Ondansetron Odt 8 Mg Tab.Rapdis) 8 mg TRANSLINGU Q6H PRN PRN Reason: Nausea and Vomiting Last Admin: 01/22/25 02:37 Dose: 8 mg Pantoprazole Sodium (Pantoprazole Sodium 20 Mg Tablet.Dr) 40 mg PO BID@0630,1630 [facility] Last Admin: 01/27/25 07:21 Dose: 40 mg Sertraline HCl (Sertraline Hcl 100 Mg Tablet) 100 mg PO DAILY [facility] Last Admin: 01/26/25 08:41 Dose: 100 mg Sucralfate (Sucralfate Oral Suspension 1 Gm/10 Ml Oral.Susp) 1 gm PO QIDACHS [facility] Last Admin: 01/26/25 20:38 Dose: 1 gm Trazodone HCl (Trazodone Hcl 50 Mg Tablet) 50 mg PO BEDTIME MRX1 PRN PRN Reason: Insomnia Last Admin: 01/25/25 21:05 Dose: 50 mg Zinc Acetate/Diphenhydramine (Diphenhydramine Hcl 2 % Cream 28 Gm Tube) 1 appl TOPICAL TID PRN PRN Reason: itching on arms Last Admin: 01/26/25 20:43 Dose: 1 appl Allergies Allergies Allergy/AdvReac Type Severity Reaction Status Date / Time No Known Allergies Allergy Verified 01/16/25 23:14 Assessment & Plan Assessment & Plan (1) MDD (major depressive disorder), recurrent episode, moderate: Status: Acute Code(s): F33.1 - Major depressive disorder, recurrent, moderate (2) PTSD (post-traumatic stress disorder): Status: Acute Code(s): F43.10 - Post-traumatic stress disorder, unspecified (3) Cocaine use disorder: Status: Acute Code(s): F14.10 - Cocaine abuse, uncomplicated (4) Alcohol use disorder: Status: Acute Code(s): F10.90 - Alcohol use, unspecified, uncomplicated (5) Erosive esophagitis: Status: Acute Code(s): K22.10 - Ulcer of esophagus without bleeding (6) Fungal ulcer of esophagus: Status: Acute Code(s): K22.10 - Ulcer of esophagus without bleeding Plan HPI: Patient is a 59-year-old male with history of MDD, PTSD, cocaine use disorder and alcohol use disorder who presented to ER due to suicidal ideation with plan to walk into traffic secondary to life stressors. Per crisis report, patient presented to ER endorsing suicidal ideation with plan to step into traffic as 1 0 several medical complaints. Patient reports he has been on the streets and has been using crack/cocaine and drinking alcohol daily. Patient reports feeling hopeless and helpless. He reports his grandson and daughter the big it is 2 turns to suicide but feels that maybe they would be better off without him. Patient has a history of suicidal thoughts but denies history of attempts. Patient reports that his nephew was shot and wounded a few days ago and when he found out he had thoughts of wanting to hurt the people who did this to him but did not have a plan or intent to do so. History of multiple inpatient psychiatric hospitalizations. Patient reports he has been drinking 1-2 pt of vodka daily and smoking 2-3 g of crack cocaine daily. U tox positive for cocaine. Patient has a prescriber via telehealth. Denies VH/AH. He reports poor sleep and appetite. During admission assessment, patient presents alert and oriented x3. Calm and cooperative. Patient reports feeling depressed; patient stated, I need to work on my depression. I need help working through my trauma . Patient reports he feels his current medications are helpful but needs to work through his trauma . He is requesting to be referred to a CSS. Denies SI/HI/VH/AH. Patient complaining of abdominal pain and acid reflux. He reports some nausea. Hospital consult placed. Hospital course: c/o abdominal pain; labs, recent CT unremarkable; possibly gastritis/esophagitis and GI consult pending given short trial oxy 5mg for abdomnial pain -mild hyponatremia likely due to vomiting 4/ Patient remains with abdominal pain, nauseous, vomitus. Appreciate GI consult who added medications and advised; see treatment plan Patient grateful for added medication. Patient reports mood is better today and no SI at all. Patient says that when he is sober, he does well he wants to go to a program. Says he has been off medications over the past few weeks while using but normally Zoloft helps. 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 4/ feeling a little better; belly pain remains but a little less intense; still vomiting but a little less often still with intractable hiccups which seemed to be prompting vomiting; restarting home dose of gabpentin 300mg tid since this also helps with intractable hiccups Patient's mood however is better and without any SI. -HIV--lab ordered: neg -sodium level improved; hospitalist ENRIQUETA ordered IV fluids with lactated Ringer's 01/21 Patient continues to complain of abdominal pain, hiccupping and vomiting however all are less than they were; he finds that whenever he eats, he starts getting hiccups which induces vomiting. Discussed diet and to start avoiding greasy food such as sausage in hamburgers which patient is ordered; he agrees to try a bland diet for now. Finds that gabapentin has helped reduce the hiccuping overall however which is encouraging. Patient wants help with substance abuse and would like a program. -discussed oxycodone and patient agrees to discontinue given that it could be contributing to abdominal pain 01/22 abd Pain, N/V and hiccups remains but less; discussed oxycodone and patient feels he can do fine without it and asks for it to be discontinued. Mood is better. He wants a program ambivalent about which type. Patient had barium swallow today looking like erosive esophagitis; discussed with GI who is ordering upper endoscopy 01/23 Patient overall doing better; hiccups, abdominal pain remain but resolving; patient still wants program but thinking about 1 around [place]. Patient had EGD and diagnosis is severe esophagitis and patient should continue with current medication regimen. 01/24 pt doing better and abdominal issue resolved; mood is good and pt discussing aftercare options discussed substance abuse and pt does not want MAT; says does not have cravings and relapse happens when he's with family/friends offering. Pt does not want tx program, but rather wants to work out sobriety on his own. 01/25 continue tx plan 01/26: continue current tx plan. 01/27- pt seemed triggered by provider discussion of dc- can't find social work note on chart describing an plans- will have to wait till Wednesday to discuss further with providers- Medically stable; Patient remains in good behavioral and impulse control and engaged in treatment PLAN: cv q15 min Continue Protonix 40 mg b.i.d. Continue famotidine 20 mg b.i.d. continue sulfulcrate Continue fluconazole for esophageal fungal infection increased to Zoloft to 100mg (home dose); Continue baclofen 10 mg t.i.d. for hiccups Continue gabapentin 300 mg t.i.d.; patient on this as an outpatient but also helping with hiccups Restarted aspirin 81 mg which he is on as an outpatient; although this could potentially aggravate stomach lining, its enteric coated and benefit outweighs risk DC Oxy DC CIWA esophagitis , candidiasis - fluconazole for 3 weeks, 200 mg D#1 then 100 mg thereafter - change to liquid sucralfate - PPI Patient educated on: other Informed Consent: further education needed Reason for continued inpatient stay Substantial Risk for: rapid decompensation Time Spent With Patient Time: Total time managing care of this patient today ____ minutes.
[2025-01-27] MEDS: Famotidine 20 MG TABLET PO ×2 (08:34→21:22)
[2025-01-27] MEDS: Fluconazole 100 MG TABLET PO (08:34)
[2025-01-27] MEDS: Aspirin Enteric Coated 81 MG TABLET.DR PO (08:34)
[2025-01-27] MEDS: Sertraline HCL 100 MG TABLET PO (08:34)
[2025-01-27] MEDS: Gabapentin 300 MG CAPSULE PO ×3 (08:34→21:22)
[2025-01-27] MEDS: Sucralfate Oral Suspension 1 GM/10 ML ORAL.SUSP PO ×4 (08:34→21:22)
[2025-01-27] MEDS: diphenhydrAMINE HCl 2 % Cream 28 GM TUBE 1 APPL TOPICAL ×2 (08:46→21:26)
[2025-01-27] MEDS: hydrOXYzine HCL 25 MG TABLET PO (15:20)
[2025-01-27 19:59] VITALS: BP 126/70; PULSE 89; RESP 18; TEMP 36.9; O2SAT 99
[2025-01-28 07:49] VITALS: BP 132/74; PULSE 64; RESP 18; TEMP 36.6; O2SAT 98
--- NOTE | 2025-01-28 08:03 | P.PNPSI_ITS ---
Subjective Subjective Date of Service: 01/28/25 Reason For Visit: Unspecified Depressive Disorder, F10.90 Alcohol Subjective Notes: Conditional Voluntary Healthcare Proxy: No Guardianship: No Medical Problems Affecting Mental Status: No (reports he feels better re GERD and ulcers) Interim History: 59 yo AAM reports felt badly about thought of being dc without a place to go - he is fine with waiting to tomorrow- to discuss with sw- who has been helping him to find a place- reports he herd doctor that he can't use again without risking is GI health- Medication Compliance: Yes Side effects from medications: No Attending Groups: Yes Review of Systems Acute medical concerns: No Medical Review of Systems: unchanged Mental Status Exam Mental Status Exam Narrative: wearing towel over his head- Patient Appearance: Well Grooomed Patient Orientation: Person, Place, Time and Situation Level of Consciousness: Awake and Appropriate Patient Behavior: Appropriate, Cooperative and Good Eye Contact Mood Description: Calm Affect Description: Appropriate Patient Cognition Impaired: No Ability to Follow Directions: Good Speech Pattern: Clear Hallucinations: None Delusions: Not Present Thought Process: Intact and Goal Oriented Depressive Symptoms: Increased Anxiety (around dc) Judgement: Good Diagnostics Vital Signs (24Hr): Vital Signs - 24 hr 01/27/25 19:59 01/28/25 07:49 Temperature 98.5 F 97.8 F Pulse Rate 89 64 Respiratory Rate 18 18 Blood Pressure 126/70 132/74 Pulse Oximetry 99 98 Oxygen Delivery Method Room Air Room Air BMI result Body Mass Index 30.4 Labs 01/19/25 07:20 01/20/25 10:03 Imaging Radiology Impressions: ITS Impressions Barium Swallow X-Ray 01/21/25 10:30 IMPRESSION: Moderate circumferential narrowing of distal esophagus with minimal distention suspicious for underlying lesion. There is distal and mid esophagitis suspected. The stomach is unremarkable. Recommend endoscopy for further evaluation. Electronically signed by: Bc New MD 01/22/2025 03:46 PM EDT Medications Medications Current Medications Acetaminophen (Acetaminophen 325 Mg Tablet) 650 mg PO Q6H PRN PRN Reason: Headache/Pain, Scale 1-10 Last Admin: 01/18/25 15:56 Dose: 650 mg Al Hydroxide/Mg Hydroxide (Magnesium Hydrox/Alum Hydrox 30 Ml Oral.Susp) 30 ml PO Q6H PRN PRN Reason: Heartburn/Nausea Last Admin: 01/23/25 18:36 Dose: 30 ml Aspirin (Aspirin Enteric Coated 81 Mg Tablet.Dr) 81 mg PO DAILY [facility] Last Admin: 01/27/25 08:34 Dose: 81 mg Bismuth Subsalicylate (Bismuth Subsalicylate 262 Mg Tablet) 262 mg PO QID PRN PRN Reason: stomach upset Last Admin: 01/20/25 22:58 Dose: 262 mg Ergocalciferol (Ergocalciferol (Vitamin D2) 1,250 Mcg Capsule) 1,250 mcg PO Q7D [facility] Famotidine (Famotidine 20 Mg Tablet) 20 mg PO BID [facility] Last Admin: 01/27/25 21:22 Dose: 20 mg Fluconazole (Fluconazole 100 Mg Tablet) 100 mg PO DAILY [facility] Stop: 02/12/25 09:01 Last Admin: 01/27/25 08:34 Dose: 100 mg Gabapentin (Gabapentin 300 Mg Capsule) 300 mg PO TID [facility] Last Admin: 01/27/25 21:22 Dose: 300 mg Hydroxyzine HCl (Hydroxyzine Hcl 25 Mg Tablet) 25 mg PO Q6H PRN PRN Reason: mild anxiety Last Admin: 01/27/25 15:20 Dose: 25 mg Lidocaine (Lidocaine 4 % Patch Adh..Patch) 1 patch TRANSDERMA DAILY PRN; Protocol PRN Reason: lower back pain Last Admin: 01/26/25 18:01 Dose: 1 patch Lidocaine/Diphenhydr/Alum/Mg/Simeth (Mag&Al/Sim/Diphenhyd/Lidocaine 10 Ml Oral.Susp) 10 ml PO Q4H PRN; Protocol PRN Reason: Throat/esophageal pain Last Admin: 01/24/25 03:53 Dose: 10 ml Magnesium Hydroxide (Milk Of Magnesia 30 Ml Oral.Susp) 30 ml PO DAILY PRN PRN Reason: Constipation Last Admin: 01/18/25 13:31 Dose: 30 ml Nicotine Polacrilex (Nicotine Polacrilex Lozenge 4 Mg Lozenge) 4 mg BUCCAL Q2H PRN PRN Reason: Nicotine Cravings Last Admin: 01/21/25 08:10 Dose: 4 mg Ondansetron HCl (Ondansetron Odt 8 Mg Tab.Rapdis) 8 mg TRANSLINGU Q6H PRN PRN Reason: Nausea and Vomiting Last Admin: 01/22/25 02:37 Dose: 8 mg Pantoprazole Sodium (Pantoprazole Sodium 20 Mg Tablet.Dr) 40 mg PO BID@0630,1630 [facility] Last Admin: 01/27/25 15:37 Dose: 40 mg Sertraline HCl (Sertraline Hcl 100 Mg Tablet) 100 mg PO DAILY [facility] Last Admin: 01/27/25 08:34 Dose: 100 mg Sucralfate (Sucralfate Oral Suspension 1 Gm/10 Ml Oral.Susp) 1 gm PO QIDACHS [facility] Last Admin: 01/27/25 21:22 Dose: 1 gm Trazodone HCl (Trazodone Hcl 50 Mg Tablet) 50 mg PO BEDTIME MRX1 PRN PRN Reason: Insomnia Last Admin: 01/25/25 21:05 Dose: 50 mg Zinc Acetate/Diphenhydramine (Diphenhydramine Hcl 2 % Cream 28 Gm Tube) 1 appl TOPICAL TID PRN PRN Reason: itching on arms Last Admin: 01/27/25 21:26 Dose: 1 appl Allergies Allergies Allergy/AdvReac Type Severity Reaction Status Date / Time No Known Allergies Allergy Verified 01/16/25 23:14 Assessment & Plan Assessment & Plan (1) MDD (major depressive disorder), recurrent episode, moderate: Status: Acute Code(s): F33.1 - Major depressive disorder, recurrent, moderate (2) PTSD (post-traumatic stress disorder): Status: Acute Code(s): F43.10 - Post-traumatic stress disorder, unspecified (3) Cocaine use disorder: Status: Acute Code(s): F14.10 - Cocaine abuse, uncomplicated (4) Alcohol use disorder: Status: Acute Code(s): F10.90 - Alcohol use, unspecified, uncomplicated (5) Erosive esophagitis: Status: Acute Code(s): K22.10 - Ulcer of esophagus without bleeding (6) Fungal ulcer of esophagus: Status: Acute Code(s): K22.10 - Ulcer of esophagus without bleeding Plan HPI: Patient is a 59-year-old male with history of MDD, PTSD, cocaine use disorder and alcohol use disorder who presented to ER due to suicidal ideation with plan to walk into traffic secondary to life stressors. Per crisis report, patient presented to ER endorsing suicidal ideation with plan to step into traffic as 1 0 several medical complaints. Patient reports he has been on the streets and has been using crack/cocaine and drinking alcohol daily. Patient reports feeling hopeless and helpless. He reports his grandson and daughter the big it is 2 turns to suicide but feels that maybe they would be better off without him. Patient has a history of suicidal thoughts but denies history of attempts. Patient reports that his nephew was shot and wounded a few days ago and when he found out he had thoughts of wanting to hurt the people who did this to him but did not have a plan or intent to do so. History of multiple inpatient psychiatric hospitalizations. Patient reports he has been drinking 1- 2 pt of vodka daily and smoking 2-3 g of crack cocaine daily. U tox positive for cocaine. Patient has a prescriber via telehealth. Denies VH/AH. He reports poor sleep and appetite. During admission assessment, patient presents alert and oriented x3. Calm and cooperative. Patient reports feeling depressed; patient stated, I need to work on my depression. I need help working through my trauma . Patient reports he feels his current medications are helpful but needs to work through his trauma . He is requesting to be referred to a CSS. Denies SI/HI/VH/AH. Patient complaining of abdominal pain and acid reflux. He reports some nausea. Hospital consult placed. Hospital course: c/o abdominal pain; labs, recent CT unremarkable; possibly gastritis/esophagitis and GI consult pending given short trial oxy 5mg for abdomnial pain -mild hyponatremia likely due to vomiting 4/4 Patient remains with abdominal pain, nauseous, vomitus. Appreciate GI consult who added medications and advised; see treatment plan Patient grateful for added medication. Patient reports mood is better today and no SI at all. Patient says that when he is sober, he does well he wants to go to a program. Says he has been off medications over the past few weeks while using but normally Zoloft helps. 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 4/5 feeling a little better; belly pain remains but a little less intense; still vomiting but a little less often still with intractable hiccups which seemed to be prompting vomiting; restarting home dose of gabpentin 300mg tid since this also helps with intractable hiccups Patient's mood however is better and without any SI. -HIV--lab ordered: neg -sodium level improved; hospitalist ENRIQUETA ordered IV fluids with lactated Ringer's 01/21 Patient continues to complain of abdominal pain, hiccupping and vomiting however all are less than they were; he finds that whenever he eats, he starts getting hiccups which induces vomiting. Discussed diet and to start avoiding greasy food such as sausage in hamburgers which patient is ordered; he agrees to try a bland diet for now. Finds that gabapentin has helped reduce the hiccuping overall however which is encouraging. Patient wants help with substance abuse and would like a program. -discussed oxycodone and patient agrees to discontinue given that it could be contributing to abdominal pain 01/22 abd Pain, N/V and hiccups remains but less; discussed oxycodone and patient feels he can do fine without it and asks for it to be discontinued. Mood is better. He wants a program ambivalent about which type. Patient had barium swallow today looking like erosive esophagitis; discussed with GI who is ordering upper endoscopy 01/23 Patient overall doing better; hiccups, abdominal pain remain but resolving; patient still wants program but thinking about 1 around [place]. Patient had EGD and diagnosis is severe esophagitis and patient should continue with current medication regimen. 01/24 pt doing better and abdominal issue resolved; mood is good and pt discussing aftercare options discussed substance abuse and pt does not want MAT; says does not have cravings and relapse happens when he's with family/friends offering. Pt does not want tx program, but rather wants to work out sobriety on his own. 01/25 continue tx plan 01/26: continue current tx plan. 01/27- pt seemed triggered by provider discussion of dc- can't find social work note on chart describing an plans- will have to wait till Wednesday to discuss further with providers- 01/28/- CTP dc planning Medically stable; Patient remains in good behavioral and impulse control and engaged in treatment PLAN: cv q15 min Continue Protonix 40 mg b.i.d. Continue famotidine 20 mg b.i.d. continue sulfulcrate Continue fluconazole for esophageal fungal infection increased to Zoloft to 100mg (home dose); Continue baclofen 10 mg t.i.d. for hiccups Continue gabapentin 300 mg t.i.d.; patient on this as an outpatient but also helping with hiccups Restarted aspirin 81 mg which he is on as an outpatient; although this could potentially aggravate stomach lining, its enteric coated and benefit outweighs risk DC Oxy DC CIWA esophagitis , candidiasis - fluconazole for 3 weeks, 200 mg D#1 then 100 mg thereafter - change to liquid sucralfate - PPI Patient educated on: medical condition and other (dc planning) Informed Consent: understands Reason for continued inpatient stay Substantial Risk for: rapid decompensation Time Spent With Patient Time: Total time managing care of this patient today ____ minutes.
[2025-01-28] MEDS: Aspirin Enteric Coated 81 MG TABLET.DR PO (08:20)
[2025-01-28] MEDS: Sucralfate Oral Suspension 1 GM/10 ML ORAL.SUSP PO ×4 (08:20→21:41)
[2025-01-28] MEDS: Sertraline HCL 100 MG TABLET PO (08:21)
[2025-01-28] MEDS: Pantoprazole Sodium 20 MG TABLET.DR 40 MG PO ×2 (08:21→15:52)
[2025-01-28] MEDS: Gabapentin 300 MG CAPSULE PO ×3 (08:21→21:41)
[2025-01-28] MEDS: Fluconazole 100 MG TABLET PO (08:21)
[2025-01-28] MEDS: Famotidine 20 MG TABLET PO ×2 (08:21→21:41)
[2025-01-28] MEDS: diphenhydrAMINE HCl 2 % Cream 28 GM TUBE 1 APPL TOPICAL ×2 (08:23→21:42)
[2025-01-28] MEDS: Lidocaine 4 % Patch ADH..PATCH 1 PATCH TRANSDERMA (09:02)
[2025-01-28] MEDS: Ergocalciferol (Vitamin D2) 1,250 MCG CAPSULE 1250 MCG PO (12:08)
[2025-01-28 19:50] VITALS: BP 138/71; PULSE 73; RESP 16; TEMP 36.6; O2SAT 100
[2025-01-29] MEDS: Pantoprazole Sodium 20 MG TABLET.DR 40 MG PO (06:39)
[2025-01-29] MEDS: Sucralfate Oral Suspension 1 GM/10 ML ORAL.SUSP PO ×2 (07:52→11:11)
[2025-01-29 07:59] VITALS: BP 128/74; PULSE 71; RESP 18; TEMP 36.4; O2SAT 99
[2025-01-29] MEDS: Sertraline HCL 100 MG TABLET PO (08:33)
[2025-01-29] MEDS: Aspirin Enteric Coated 81 MG TABLET.DR PO (08:33)
[2025-01-29] MEDS: Gabapentin 300 MG CAPSULE PO ×2 (08:33→14:16)
[2025-01-29] MEDS: Fluconazole 100 MG TABLET PO (08:34)
[2025-01-29] MEDS: Famotidine 20 MG TABLET PO (08:34)
[2025-01-29] MEDS: Naloxone HCl Nasal TAKE HOME 4 MG SPRAY 8 MG NOSTRILALT (11:11)
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
== END 2025-01-29 14:58 | disposition home or self-care (01) | DRG 751 ==
PROVIDERS: Clinical Nurse Specialist Psychiatric/Mental Health, Adult; Internal Medicine Gastroenterology; Student in an Organized Health Care Education/Training Program; Admitting Provider Psychiatry & Neurology Psychiatry; Visit Provider Psychiatry & Neurology Psychiatry
DX: F33.1 Major depressive disorder, recurrent, moderate (principal); B37.81 Candidal esophagitis; E87.1 Hypo-osmolality and hyponatremia; R45.851 Suicidal ideations; K22.10 Ulcer of esophagus without bleeding; K59.00 Constipation, unspecified; F14.10 Cocaine abuse, uncomplicated; F43.10 Post-traumatic stress disorder, unspecified; F10.90 Alcohol use, unspecified, uncomplicated; F17.210 Nicotine dependence, cigarettes, uncomplicated; Z71.6 Tobacco abuse counseling; Z79.82 Long term (current) use of aspirin; Z79.899 Other long term (current) drug therapy
CPT/HCPCS: 36415; 74220; 80048; 80061; 80076; 82150; 82607; 82746; 83036; 83690; 83735; 84439; 84443; 85025; 85027; 87389; J7120

== ENCOUNTER 2025-01-16 23:46 | Outpatient (BNV) | payer OTHER, SELFPAY | END 2025-01-21 10:30 | PROVIDERS: Admitting Provider Psychiatry & Neurology Psychiatry; Visit Provider Radiology Diagnostic Radiology | DX: K22.2 Esophageal obstruction (principal) | CPT/HCPCS: 74220 ==

== ENCOUNTER → 2025-01-16 23:46 | Outpatient (BNV) | payer OTHER, SELFPAY | PROVIDERS: Admitting Provider Psychiatry & Neurology Psychiatry; Visit Provider Student in an Organized Health Care Education/Training Program | DX: Z00.8 Encounter for other general examination (principal) | CPT/HCPCS: 99222; 99499 ==

== ENCOUNTER → 2025-01-16 23:46 | Outpatient (BNV) | payer OTHER, SELFPAY | PROVIDERS: Admitting Provider Psychiatry & Neurology Psychiatry; Visit Provider Registered Nurse | DX: F33.1 Major depressive disorder, recurrent, moderate (principal); F14.10 Cocaine abuse, uncomplicated; F10.90 Alcohol use, unspecified, uncomplicated; F43.11 Post-traumatic stress disorder, acute; K22.10 Ulcer of esophagus without bleeding | CPT/HCPCS: 90792; 99231; 99232 ==

== ENCOUNTER → 2025-01-16 23:46 | Outpatient (BNV) | payer OTHER, SELFPAY | PROVIDERS: Admitting Provider Psychiatry & Neurology Psychiatry; Visit Provider Internal Medicine Gastroenterology | DX: K22.10 Ulcer of esophagus without bleeding (principal) | CPT/HCPCS: 99223 ==

== ENCOUNTER → 2025-01-23 10:11 | Outpatient (BNV) | payer OTHER, SELFPAY | PROVIDERS: Visit Provider Internal Medicine Gastroenterology | DX: K22.10 Ulcer of esophagus without bleeding (principal); R13.10 Dysphagia, unspecified; R93.3 Abnormal findings on diagnostic imaging of other parts of digestive tract; K20.90 Esophagitis, unspecified without bleeding; K29.70 Gastritis, unspecified, without bleeding | CPT/HCPCS: 43239; 99232 ==

== ENCOUNTER → 2025-01-23 10:11 | Day surgery (SDC) | payer OTHER, SELFPAY ==
--- OUTSIDE RECORDS SUMMARY | 2025-01-23 07:38 | XMS_ITS | Clinical Summary ---
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 Name Role Phone Required, No Pcp/Pcp Not Primary Care Provider U navailable Allergies No known active allergies Medications famotidine (PEPCID) 20 MG tablet Take 1 tablet (20 mg) by mouth two times a day 30 tablet 01/22/2024 Active Social History Tobacco Use Types Packs/Day Years Used Date Smoking Tobacco: Never Assessed Sex and Gender Information Value Date Recorded Sex Assigned at Not on file Legal Sex Male 9:19 AM EDT Gender Identity Not on file Sexual Orientation Not on file Last Filed Vital Signs Vital Sign Reading Time Taken Comments Blood Pressure 164/90 01/22/2024 4:50 AM EDT Pulse 66 01/22/2024 4:50 AM EDT Temperature 36.5 ??C (97.7 ??F) 01/22/2024 4:50 AM ED T Respiratory Rate 16 01/22/2024 4:50 AM EDT Oxygen Saturation 97% 01/22/2024 4:50 AM EDT Inhaled Oxygen Concentration - - Weight 108.9 kg (240 lb) 01/21/2024 6:30 PM EDT Height 180.3 cm (5' 11 ) 01/21/2024 6:30 PM EDT Body Mass Index 33.47 01/21/2024 6:30 PM EDT Plan of Treatment Health Maintenance Due Date Last Done Comments [facility] TOPIC SIGMOIDOSCOPY 1965 [facility] Topic HIV Screening 1965 [facility] Topic PSA 1965 [facility] Topic Depression Screening 1977 [facility] Topic Tdap Vaccine (1 - Tdap) 1984 [facility] TOPIC FOBT/FIT TEST 2010 [facility] Topic Cologuard 2010 [facility] Topic Colon Cancer Screening 2010 [facility] Topic Colonoscopy 2010 [facility] Topic Pneumococcal Vaccine (HEDIS/Adult) (1 of 1 - PCV) 2015 [facility] Topic Shingrix 2 Dose (1 of 2) 2015 [facility] Topic Influenza (Flu) Seasonal (#1) 2025 [facility] Topic Lipid Profile 5 years 09/19/2027 09/19/2022, 12/31/2021 [facility] Topic Hepatitis C Screening Completed 01/07/2021 [facility] Topic HIB Vaccines Aged Out No longer eligible based on patient's age to complete this topic Insurance [employer] [place], [place] [id number] [place] [address] [place] [address] Care Teams Channel Cementer Relationship Specialty Start Date End Date Required, No Pcp/Pcp Not [address] [place] [address] PCP - General [employer] 12/30/22
--- OUTSIDE RECORDS SUMMARY | 2025-01-23 07:38 | XMS_ITS | Clinical Summary ---
Author Organization Kay Marinelli [facility] Address [address] [place] [address] Care Team Providers Care Whiting Can Worker Name Role Phone Unknown, Provider MD Primary Care Provider Unava ilable Allergies No known active allergies Medications betamethasone, augmented, (DIPROLENE) 0.05 % ointment Apply 1 application topically every morning & every evening. 2 Active triamcinolone (KENALOG) 0.5 % ointment Apply 1 application topically every morning & every evening. 2 Active traZODone (DESYREL) 100 MG tablet Take 1 tablet (100 mg total) by mouth at bedtime as needed. 2 Active thiamine 100 MG tablet Take 1 tablet (100 mg total) by mouth daily. 2 Active omeprazole (PriLOSEC) [address] capsule Take 1 capsule (20 mg total) by mouth every morning & every evening. 2 Active botkgerr-lyj-uo qe-mkbvw-ttg K1 8 mg-400 mcg- 10 mcg Chew Chew 1 tablet daily. 2 Active hydrOXYzine pamoate (VISTARIL) 50 MG capsule Take 1 capsule (50 mg total) by mouth 2 times a day as needed. 2 Active gabapentin (NEURONTIN) 300 MG capsule Take 1 capsule (300 mg total) by mouth every morning & every evening. 2 Active acetaminophen (TYLENOL) 325 MG tablet Take 2 tablets (650 mg total) by mouth every 6 hours as needed for pain. 2 Active sertraline (ZOLOFT) 50 MG tablet Take 1 tablet (50 mg total) by mouth daily. 30 tablet 2 Active aspirin 81 MG EC tablet Take 1 tablet (81 mg total) by mouth daily. 30 tablet 2 Active Active Problems Problem Noted Date Diagnosed Date Hard of hearing 10/18/2022 Overview (10/18/2022): Last Assessment & Plan: History of hearing loss. Housing problems 08/21/2022 Lack of access to transportation 08/21/2022 Lack of adequate food 08/21/2022 Substance use disorder 08/04/2022 Overview (10/18/2022): Alcohol and cocaine use Treated with [facility] protocol, Naltrexone 50 mg po qd Omeprazole 40 mg po qd Referred to [facility] [place] [facility] (major depressive disord er), single episode, severe , no psychosis 07/24/2022 Overview (10/18/2022): He was treated with: Zoloft 50 mg po qd, Trazodone 100 mg po HS Folic acid 1 mg po qd Thiamine 100 mg po qd Multivitamins 1 po qd, Vitamin D3 50,000 Units po weekly x 8 more doses Naltrexone 50 mg po qd Omeprazole 40 mg po qd Nicotine patch 14 mg apply to skin daily Eucerin cream apply to dry skin as needed. Abdominal pain 07/21/2022 Overview (10/18/2022): Last Assessment & Plan: Provided patient with Bismuth 524 mg, instructed to take every 30 to 60 minutes or 1,050 mg every 60 minutes as needed for up to 2 days. Chew tablets thoroughly or allow to dissolve in the mouth before swallowing. Chronic nasal congestion 07/21/2022 Overview (10/18/2022): Last Assessment & Plan: Provided patient Chlorpheniramine 4 mg tablet for allergies. Instructed patient they may take every 6 hours as needed. Major depressive disorder 08/25/2021 Overview (10/18/2022): 06/05/2021 Hospitalization for depression and detox. May02/10/2021 Feels less depressed. After leaving [facility], stays with his father and brother. Is currently sober and will be working with [employer] housing program. Last Assessment & Plan: Assessment: I am in [employer] program. Now is able to get meds and services . [facility] in [place]. Has been depressed. Sleeps is poor --5 hr. Takes sleep meds. They dont work. Has hamilton on his hands and will go to to get checked. Current Risk Assessment (if positive complete C-SSRS): None - no suicidal ideation. Plan details: Psychological condition will be reassessed bi-weekly/monthly; Patient is expected to benefit from ~ bi-weekly/monthly individual psychotherapy 45 min. Sessions over the phone as appropriate for the next 3 months to monitor MSE for risk; for safety, to achieve better symptom control; prevent relapse and to maintain therapeutic gains Last Assessment & Plan: Suicidal Ideation/MDD Currently not edorses suidical ideation but notes that these thoughts have been fluctuating. Will maintain on suicide precautions given recent endorsement of suicidal ideation. The patient is being followed by psychiatry. The patient reports he is safe in the hospital. - continue sertraline 50 mg daily - continue trazodone 50 to 100 mg nightly may repeat dose by 25 to 50 mg prn for insomnia -??EKG with qtc with 433ms 06/05/2021 Hospitalization for depression and detox. May02/10/2021 Feels less depressed. After leaving [facility], stays with his father and brother. Is currently sober and will be working with [employer] housing program. Last Assessment & Plan: Assessment: I am in [employer] program. Now is able to get meds and services . Will try to go the [facility] in [place]. Has been depressed. Sleeps is poor --5 hr. Takes sleep meds. They dont work. Has hamilton on his hands and will go to to get checked. Current Risk Assessment (if positive complete C-SSRS): None - no suicidal ideation. Plan details: Psychological condition will be reassessed bi-weekly/monthly; Patient is expected to benefit from ~ bi-weekly/monthly individual psychotherapy 45 min. Sessions over the phone as appropriate for the next 3 months to monitor MSE for risk; for safety, to achieve better symptom control; prevent relapse and to maintain therapeutic gains Last Assessment & Plan: Psychological condition is well managed at this time. Plan: Continue current treatment regimen. Psychological condition will be reassessed at the next regular appointment Client given # now [facility] to call now for refill of needed med-zoloft [phone] and 2nd #.[phone] and 2nd # 20 [facility] ALSO GIVEN # FOR [facility] to give to provider for where to send meds [phone] Client appreciative Already working w [facility] re; refills for acid reflux Cocaine abuse 05/17/2021 Overview (10/18/2022): 02/10/2021 Has been sober since our last session. Stays with father and brother both of whom dont drink. 01/27/2021 Currently drinks. When intoxicated become suicidal Last Assessment & Plan: A: Psychological condition is improving with treatment but still not stable. P: Continue current medications. Continue to reinforce nonpharmacological interventions. Continue to monitor closely. History of cocaine use 01/03/2021 Episode of recurrent major depressive disorder 0 11/10/2020 GERD (gastroesophageal reflux disease) Overview (10/18/2022): Last Assessment & Plan: - omeprazole 20mg BID?? Pain in axilla 11/08/2020 Overview (10/18/2022): Last Assessment & Plan: Pain in bilateral axilla Contact dermatitis vs fungal vs hydraninitis??suppuritiva Given history of new deodorant and temporal relationship of developing rash, most consistent with contact/irritant/chemical dermatitis. Emollient cream was not helpful. Liikely hidradenitis as no open sores of drainage. Less likely scabies/body lice given location but at risk given intermittent undomicilied status. - emollient cream??was not successf avoiding the deodorant- Nystatin triamcinolone for 24 hours due to inflammation, then nystatin cream TID. Medication management 06/11/2020 Overview (10/18/2022): Last Assessment & Plan: Running low on zoloft and anti reflux med has pcp in [facility] to call pcp now and have script sent to [employer] for staff to machine [facility] Last Assessment & Plan: Running low on zoloft and anti reflux med has pcp in [facility] to call pcp now and have script sent to [employer] for staff to machine [employer] Suicidal ideation 11/23/2019 Nicotine dependence 07/31/2014 Overview (10/18/2022): Last Assessment & Plan: Smokes 1/2 ppd, sometimes up to 1-2 ppds when drinking more - nicotine patch - would qualify for screening chest CT scan given age 55 years and at least 30 pack year smoking hx, note on discharge ? Encounters Date Type Department Care Team Description 01/16/2025 10:11 AM EDT - 01/16/2025 10:05 PM EDT Emergency [facility] Emergency Department [address] [place] [address] Darrel Marcelino MD Gershaw, Rachel, Esophagitis (Primary Dx); Cocaine abuse (HCC); Alcohol abuse; Suicidal ideation; Unspecified depressive disorder; Alcohol use disorder; Stimulant use disorder Discharge Disposition: Psychiatric Hospital 01/16/2025 Travel 01/15/2025 Documentation [place] [facility] [address] [place], [place] [id number] Connie Farrar LCSW from Last 3 Months Family History Relation Status Comments Father Mother Social History Tobacco Use Types Packs/Day Years Used Date Smoking Tobacco: Every Day Cigarettes Tobacco Cessation:Ready to Q uit: Not Asked; Counseling Given: Not Answered Alcohol Use Standard Drinks/Week Comments Yes 0 (1 standard drink = 0.6 oz pur e alcohol) a lot per patient AUDIT C Answer Date Recorded How often have you had a dri nk containing alcohol, in the past year? 4 01/16/2025 How many standard drinks con taining alcohol have you had on a typical day when you are drinking, in the past year? 4 0 01/16/2025 How often have you had six o r more drinks on one occasion, in the past year? 4 01/16/2025 Sex and Gender Information Value Date Recorded Sex Assigned at Male 09/19/2022 12:39 AM EST Legal Sex Male 12:02 AM EST Gender Identity Male 09/19/2022 12:39 AM EST Sexual Orientation Not on file Last Filed Vital Signs Vital Sign Reading Time Taken Comments Blood Pressure 144/86 01/16/2025 2:37 PM EDT Pulse 86 01/16/2025 2:37 PM EDT Temperature 36.7 ??C (98.1 ??F) 01/16/2025 10:08 AM E DT Respiratory Rate 18 01/16/2025 2:37 PM EDT Oxygen Saturation 100% 01/16/2025 2:37 PM EDT Inhaled Oxygen Concentration - - Weight 93.9 kg (207 lb) 01/16/2025 10:08 AM EDT Height 180.3 cm (5' 11 ) 01/16/2025 10:08 AM EDT Body Mass Index 28.87 01/16/2025 10:08 AM EDT Plan of Treatment Health Maintenance Due Date Last Done Comments PSA 1965 Prostate Cancer Screening 1965 SDM 1965 Depression Screening 1969 Hepatitis C Screening 1983 DTaP,Tdap,and Td Vaccines (1 - Tdap) 1984 Pneumococcal Vaccine: Pediatrics (0 to 5 Years) and At-Risk Patients (6 to 64 Years) (1 of 2 - PCV) 1984 Pneumococcal Vaccine (1 of 2 - PCV) 1984 CT Colonography 2010 Colonoscopy 2010 FIT 2010 Multitarget Stool DNA (Cologuard) 2010 Sigmoidoscopy 2010 Zoster Vaccine (1 of 2) 2015 COVID-19 Vaccine (2 - season) 2024 09/05/2021 Lipid Panel 08/29/2024 08/29/2023, 08/18, 08/29/2023, Additional history exists Colorectal Cancer Screening 03/21/2025 FOBT 03/21/2025 03/21/2024 Influenza Vaccine (Season Ended) 2025 09/01/2023 Hemoglobin A1c 09/19/2025 09/19/2022 Blood Pressure 01/16/2026 01/16/2025 Meningococcal Vaccines Aged Out No lo nger eligible based on patient's age to complete this topic Procedures Procedure Name Priority Date/Time Associated Diagnosis Comments RBC WBC PLT MORPHOLGY STAT 01/16/2025 7:27 PM EDT MANUAL DIFFERENTIAL STAT 01/16/2025 7 :27 PM EDT CBC AND DIFFERENTIAL STAT 01/16/2025 7:27 PM EDT CBC AND DIFFERENTIAL STAT 01/16/2025 7:27 PM EDT BASIC METABOLIC PANEL STAT 01/16/2025 7:27 PM EDT DRUG SCREEN, URINE STAT 01/16/2025 2: [address] ABDOMEN AND PELVIS W CONTRAST STAT 01/16/2025 1:47 PM EDT ECG 12-LEAD STAT 01/16/2025 11:02 AM EDT RBC WBC PLT MORPHOLGY STAT 01/16/2025 10:31 AM EDT MANUAL DIFFERENTIAL STAT 01/16/2025 1 0:31 AM EDT CBC AND DIFFERENTIAL STAT 01/16/2025 10:31 AM EDT TROPONIN (ALL) STAT 01/16/2025 10:31 AM EDT LIPASE STAT 01/16/2025 10:31 AM EDT HEPATIC FUNCTION PANEL STAT 01/16/2025 10:31 AM EDT CBC AND DIFFERENTIAL STAT 01/16/2025 10:31 AM EDT TOXICOLOGY SCREEN, BLOOD STAT 01/16/2025 10:31 AM EDT BASIC METABOLIC PANEL STAT 01/16/2025 10:31 AM EDT CHOLESTEROL, TOTAL Routine 08/29/2023 6: 40 AM EST HEMOGLOBIN A1C Routine 09/19/2022 8:54 AM EST from Last 3 Months or Most Recently Relevant to Health Maintenance Results * RBC WBC PLT Morphology (01/16/2025 7:27 PM EDT) Only the most recent of2 resultswithin the time period is included. Platelet Est Normal Normal 01/16/2025 8:55 PM EDT [facility] RBC Morphology Normal 01/16/2025 8:55 PM EDT [facility] Blood PERIPHERAL BLOOD SPECIMEN / Unknown Venipuncture / Unknown 01/16/2025 7:27 PM EDT 01/16/2025 7:30 PM EDT us Darrel Marcelino MD LAB BLOOD ORDERABLES Final R esult [facility] [address] [place] [address], [place] * (ABNORMAL) CBC and Differential (01/16/2025 7:27 PM EDT) Only the most recent of2 resultswithin the time period is included. WBC 12.49(H) 3.90 - 10.80 K/uL 01/16/2025 7:43 PM [facility] RBC 4.20 4.20 - 5.60 M/uL 01/16/2025 7:43 PM [facility] Hemoglobin 12.4(L) 14.0 - 17.3 g/dL 01/16/2025 7:43 PM [facility] Hematocrit 35.7(L) 40.0 - 49.0 % 01/16/2025 7:43 PM [facility] MCH 29.5 25.7 - 32.2 pg 01/16/2025 7:43 PM [facility] MCHC 34.7 32.0 - 36.0 g/dL 01/16/2025 7:43 PM [facility] MCV 85 82 - 102 fL 01/16/2025 7:43 PM [facility] RDW 13.9 12.0 - 15.0 % 01/16/2025 7:43 PM [facility] RDW-SD 42.8 32.9 - 69.6 fL 01/16/2025 7:43 PM [facility] Platelet Count 365 150 - 400 K/uL 01/16/2025 7:43 PM [facility] MPV 10.2 8.5 - 13.0 fL 01/16/2025 7:43 PM [facility] Blood PERIPHERAL BLOOD SPECIMEN / Unknown Venipuncture / Unknown 01/16/2025 7:27 PM EDT 01/16/2025 7:30 PM EDT us Darrel Marcelino MD LAB BLOOD ORDERABLES Final R esult [facility] [address] [place] [address], [place] * (ABNORMAL) Differential (01/16/2025 7:27 PM EDT) Only the most recent of2 resultswithin the time period is included. WBC 12.49(H) 3.90 - 10.80 K/uL 01/16[facility]2025 8:55 PM [facility] Neutrophil 65 43 - 74 % 01/16/2025 8:55 PM [facility] Lymphocyte 24 17 - 47 % 01/16/2025 8:55 PM [facility] Monocyte 10 5 - 12 % 01/16/2025 8:55 PM [facility] Eosinophil 1 0 - 6 % 01/16/2025 8:55 PM [facility] Absolute Neutrophil Count 8.12(H) 1.50 - 8.10 K/uL 01/16/2025 8:55 PM [facility] Absolute Lymphocyte Count 3.00 0.95 - 4.20 K/uL 01/16/2025 8:55 PM [facility] Absolute Monocyte Count 1.25(H) 0.20 - 1.20 K/uL 01/16/2025 8:55 PM [facility] Absolute Eosinophil Count 0.12 0.06 - 0.60 K/uL 01/16/2025 8:55 PM [facility] Blood PERIPHERAL BLOOD SPECIMEN / Unknown Venipuncture / Unknown 01/16/2025 7:27 PM EDT 01/16/2025 7:30 PM EDT us Darrel Marcelino MD LAB BLOOD ORDERABLES Final R esult [facility] [address] [place] [address], * (ABNORMAL) Basic Metabolic Panel (01/16/2025 7:27 PM EDT) Only the most recent of2 resultswithin the time period is included. Sodium 133(L) 135 - 146 mmol/L 01/16/2025 8:14 PM EDT [facility] Potassium 3.4 3.4 - 5.2 mmol/L 01/16/2025 8:14 PM [facility] Chloride 90(L) 98 - 110 mmol/L 01/16/2025 8:14 PM [facility] Total CO2/Bicarbonat e 30 24 - 32 mmol/L 01/16/2025 8:14 PM [facility] Anion Gap 13 2 - 15 mmol/L 01/16/2025 8:14 PM [facility] BUN 29(H) 7 - 24 mg/dL 01/16/2025 8:14 PM [facility] Creatinine, Blood 1.10 0.60 - 1.30 mg/dL 01/16/2025 8:14 PM [facility] Glucose, Blood 115(H) 50 - 100 mg/dL 01/16/2025 8:14 PM [facility] Calcium 8.4(L) 8.5 - 10.5 mg/dL 01/16/2025 8:14 PM [facility] Estimated GFR(CKD-EPI) 73 >=60 mL/min/BSA 01/16/2025 8:14 PM [facility] Blood PERIPHERAL BLOOD SPECIMEN / Unknown Venipuncture / Unknown 01/16/2025 7:27 PM EDT 01/16/2025 7:30 PM EDT us Darrel Marcelino MD LAB BLOOD ORDERABLES Final R esult [facility] [address] [facility] [place] [address], * (ABNORMAL) Drug Screen, Urine (01/16/2025 2:41 PM EDT) Amphetamines Screen, Urine Negative Negative 01/16/2025 3:38 PM EDT [facility] Barbiturates Screen, Urine Negative Negative [facility]/16/2025 3:38 [facility] Benzodiazepine Screen, Urine Negative Negative 01/16/2025 3:38 PM [facility] Buprenorphine Screen, Urine Negative Negative 01/16/2025 3:38 PM [facility] Cannabinoids Screen, Urine Negative Negative 01/16/2025 3:38 PM T [facility] Cocaine Metabolite Screen, Urine Positive(A) Negative 01/16/2025 3:38 PM EDT [facility] Fentanyl Screen, Urine Negative Negative 01/16/2025 3:38 PM EDT [facility] Methadone Screen, Urine Negative Negative 01/16/2025 3:38 PM EDT [facility] Opiates Screen, Urine Negative Negative 01/16/2025 3:38 PM EDT [facility] Oxycodone Screen, Urine Negative Negative 01/16/2025 3:38 PM EDT [facility] Comment 01/16/2025 3:38 PM EDT [facility] Comment: The cut-off concentration for a positive result for each drug is listed below: Drug Cut-off value Amphetamines >1000 ng/mL Barbiturates >200 ng/mL Benzodiazepines >300 ng/mL Buprenorphine >5 ng/mL Cannabinoids >50 ng/mL Cocaine >300 ng/mL Fentanyl >5.0 ng/mL Opiates >300 ng/mL Methadone >300 ng/mL Oxycodone >100 ng/mL This is only a screening; positive results are not confirmed by a second method; The results must be used for medical purposes only. Urine URINE SPECIMEN / Unknown Collection / Unknown 01/16/2025 2:41 PM EDT 01/16/2025 2:45 PM EDT us Darrel Marcelino MD URINE ORDERABLES Final Resul t [facility] [address] [facility] [place] [address], [place] * CT Abdomen And Pelvis With IV Contrast (01/16/2025 1:47 PM EDT) Anatomical Region Laterality Modality Abdomen, Pelvis Computed Tomogra phy 01/16/2025 2:16 PM EDT Impressions 01/16/2025 2:20 PM EDT 1. No acute intra-abdominal/pelvic pathology. 2. Hiatal hernia with distal esophageal wall thickening may reflect reflux esophagitis. Clinical correlation and follow-up recommended. Signed By: Daniel Carranza on 01/16/2025 2:20 PM on [id number] Narrative 01/16/2025 2:[address] ABDOMEN PELVIS W CONTRAST Accession Number (s): [id number] Exam Date/Time: 01/16/2025 1:37 AM Reason For Exam: epigastric abdominal pain, vomiting All CT scans at this facility use 1 or more dose reduction techniques, viz: Automated exposure control; ma/kv adjustment per patient's size (including targeted exams were dose is matched to indication; i.e. head); or iterative reconstruction technique. Multislice CT abdomen and pelvis acquired in the axial plane following IV administration of 100 mL of Omnipaque 350. Reformatted coronal and sagittal images were also reviewed. Exam is mildly limited by patient motion. Subsegmental atelectasis are at the left lung base. No pleural effusions. Small hiatal hernia with distal esophageal wall thickening. Few small hepatic cysts or hemangiomas. Liver is otherwise unremarkable. Spleen is normal. No calcified gallstones. Bile ducts are not grossly dilated. Pancreas is unremarkable without inflammation or mass. Adrenal glands are normal. No renal calculi or hydronephrosis on either side. Aorta is normal in course and caliber. No gross retroperitoneal lymphadenopathy. Evaluation of bowel is limited secondary to lack of oral contrast media. No bowel obstruction or obvious inflammation. Normal appendix. Unopacified urinary bladder is grossly unremarkable. No free fluid in the pelvis. No free intraperitoneal air. Umbilical hernia containing fat only. Bone windows demonstrate no acute fracture or destructive lesion. Multilevel lumbar spine facet arthritis. Procedure Note Daniel Carranza MD - 01/16/2025 CT ABDOMEN PELVIS W CONTRAST Accession Number (s): [id number] Exam Date/Time: 01/16/2025 1:37 AM Reason For Exam: epigastric abdominal pain, vomiting All CT scans at this facility use 1 or more dose reduction techniques, viz: Automated exposure control; ma/kv adjustment per patient's size (including targeted exams were dose is matched to indication; i.e. head); or iterative reconstruction technique. Multislice CT abdomen and pelvis acquired in the axial plane following IV administration of 100 mL of Omnipaque 350. Reformatted coronal and sagittal images were also reviewed. Exam is mildly limited by patient motion. Subsegmental atelectasis are at the left lung base. No pleural effusions. Small hiatal hernia with distal esophageal wall thickening. Few small hepatic cysts or hemangiomas. Liver is otherwise unremarkable. Spleen is normal. No calcified gallstones. Bile ducts are not grossly dilated. Pancreas is unremarkable without inflammation or mass. Adrenal glands are normal. No renal calculi or hydronephrosis on either side. Aorta is normal in course and caliber. No gross retroperitoneal lymphadenopathy. Evaluation of bowel is limited secondary to lack of oral contrast media. No bowel obstruction or obvious inflammation. Normal appendix. Unopacified urinary bladder is grossly unremarkable. No free fluid in the pelvis. No free intraperitoneal air. Umbilical hernia containing fat only. Bone windows demonstrate no acute fracture or destructive lesion. Multilevel lumbar spine facet arthritis. IMPRESSION: 1. No acute intra-abdominal/pelvic pathology. 2. Hiatal hernia with distal esophageal wall thickening may reflect reflux esophagitis. Clinical correlation and follow-up recommended. Signed By: Daniel Carranza on 01/16/2025 2:20 PM on [id number] Darrel Marcelino MD IMG CT ORDERABLES Final Resu lt * ECG 12 lead, to be obtained, other indication (01/16/2025 11:02 AM EDT) 01/16/2025 11:0 0 AM EDT Narrative [facility] CV BIDM ECG - 01/16/2025 11:02 AM EDT See ED note for ECG result information. Darrel Marcelino MD ECG ORDERABLES Final Result Performing Organization Address [facility] Co de Phone Number [place] BIDM ECG * Troponin (once) (01/16/2025 10:31 AM EDT) Troponin T HS 8 <=19 ng/L 01/16/2025 6:03 PM EDT [facility] Blood PERIPHERAL BLOOD SPECIMEN / Unknown Venipuncture / Unknown 01/16/2025 10:31 AM EDT 01/16/2025 10:34 AM EDT Darrel Marcelino MD LAB BLOOD ORDERABLES Final R esult Performing Organization Address [facility]/ZIP Co de Phone Number [facility] [address] [place] [address], [place] * (ABNORMAL) Plasma Toxicology Screen (01/16/2025 10:31 AM EDT) Acetaminophen Result,Blood <5(L) 10 - 30 ug/mL 01/16/2025 11:07 AM [facility] Alcohol <10 <10 mg/dL 01/16/2025 11:07 AM [facility] Salicylate Level, Blood 3 <30 mg/dL 01/16/2025 11:07 AM T [facility] Blood PERIPHERAL BLOOD SPECIMEN / Unknown Venipuncture / Unknown 01/16/2025 10:31 AM EDT 01/16/2025 10:34 AM EDT Darrel Marcelino MD LAB BLOOD ORDERABLES Final R esult Performing Organization Address City/[facility]/ZIP Co de Phone Number [facility] [address] [facility] [place] [address], [place] * Lipase (01/16/2025 10:31 AM EDT) Pathologist [facility] Lipase 34 0 - 60 U/L 01/16/2025 10:59 AM T [facility] Blood PERIPHERAL BLOOD SPECIMEN / Unknown Venipuncture / Unknown 01/16/2025 10:31 AM EDT 01/16/2025 10:34 AM EDT Darrel Marcelino MD LAB BLOOD ORDERABLES Final R esult Performing Organization Address City/[facility]/ZIP Co de Phone Number [facility] [address] [place] [address], [place] * (ABNORMAL) Hepatic Function Panel (01/16/2025 10:31 AM EDT) Pathologist [facility] Total Protein 8.7(H) 6.2 - 8.2 g/dL 01/16/2025 10:59 AM [facility] Albumin, Blood 4.3 3.4 - 5.2 g/dL 01/16/2025 10:59 AM [facility] Globulin Result 4.4 g/dL 10:59 AM [facility] Total Bilirubin 1.0 0.2 - 1.2 mg/dL 01/16/2025 10:59 AM [facility] Direct Bilirubin 0.3 0.2 - 0.5 mg/dL 01/16/2025 10:59 AM EDT [facility] Alkaline Phosphatase 135(H) 40 - 130 U/L 01/16/2025 10:59 AM EDT [facility] AST (SGOT) 31 11 - 40 U/L 01/16/2025 10:59 AM EDT [facility] ALT (SGPT) 19 7 - 40 U/L 01/16/2025 10:59 AM EDT [facility] Blood PERIPHERAL BLOOD SPECIMEN / Unknown Venipuncture / Unknown 01/16/2025 10:31 AM EDT 01/16/2025 10:34 AM EDT us Darrel Marcelino MD LAB BLOOD ORDERABLES Final R esult [facility] [address] [place] [address], [place] * Cholesterol, Total (08/29/2023 6:40 AM EST) Cholesterol 138 0.000 - 199.000 mg/dL CONVERSION FROM [facility] 08/29/2023 6:40 AM EST 08/29/2023 10:52 AM EST Narrative CONVERSION FROM [facility] - 08/29/2023 10:52 AM EST Report Comment: LT GREEN TOP us Historical Conversion Provider LAB BLOOD EVITA BARBA Final Result CONVERSION FROM [facility] * Hemoglobin A1C (09/19/2022 8:54 AM EST) Hemoglobin A1C 5.3 4.6 - 5.6 % [facility] [id number] 09/19/2022 9:55 PM EST [facility] Estimated Average Glucose 105 mg/dL [facility] [id number] 09/19/2022 9:55 PM EST [facility] Blood PERIPHERAL BLOOD SPECIMEN / Unknown Venipuncture / Unknown 09/19/2022 8:54 AM EST 09/19/2022 9:01 AM EST us Joy Brannon DO LAB BLOOD ORDERABLES Final Resu lt [facility] [address] [place] [address] from Last 3 Months or Most Recently Relevant to Health Maintenance Insurance [place] [facility] Advance Directives * Full Code (Latest Code Status on File) Date Activated Date Inactivated Comments 09/19/2022 7:35 PM 10/16/2024 11:35 AM Care Teams [place] Can Worker Relationship Specialty Start Date End Date Unknown, Provider, [address] [place] [id number] PCP - General 10/16/24
--- OUTSIDE RECORDS SUMMARY | 2025-01-23 07:38 | XMS_ITS | Continuity of Care Document ---
Author Organization [facility] Address [address] [place] [address] Phone Care Team Providers Care Business Director Name Role Phone Unavailable Unavailable Unavailable Allergies, Adverse Reactions, Alerts Substance Reaction Status Criticality No Known Allergies Active No Inform ation Medications Medication Instructions Dosage Effective Dates (start - stop) Status Comments trazodone 50 mg tablet take 1 tablet by oral route every day at bedtime 50 MG - Active sertraline 50 mg tablet take 1 tablet by oral route every day 50 MG - Active atomoxetine 25 mg capsule take 1 capsule by oral route every day in the morning 25 MG - Active Percocet 5 mg-325 mg tablet take 1 tablet by oral route every 6 hours as needed 1.00 tablet - Active clindamycin 300 mg capsule take 1 capsule by oral route every 8 hours 300 MG - Active diazepam 5 mg tablet take 1 tablet by oral route every day 5 MG - Active omeprazole 20 mg capsule,delayed release take 1 capsule by oral route every 12 days 30 minutes to 1 hour before a meal 20 MG - Active Mucus Relief ER 600 mg tablet, extended release take 1 tablet by oral route every 12 hours as needed 600 MG - Active Adderall 20 mg tablet take 1 tablet by oral route 3 times every day before breakfast, at noon, and at 4 pm 20 MG - Active paroxetine 20 mg tablet take 1 tablet by oral route every day 20 MG - Active quetiapine 50 mg tablet take 1 tablet by oral route 2 times every day 50 MG - Active Procedures Procedure Date OFFICE/OUTPATIENT VISIT, EST Limited Oral Evaluation-Problem Focused Intraoral-Periapical First Film 015 Intraoral-Periapical Each Additional Cale m Limited Oral Evaluation-Problem Focused PREV VISIT, EST, AGE 40-64 OFFICE/OUTPATIENT VISIT, NEW Advance Directives Directive Yes / No Effective Date File Name No Information Encounters Encounter Description Practice Location Reason(s) For Visit Diagnoses Date Provider Providers Copied on Encounter [facility], [address], [place], [place], [id number], [place] tel:[phone] [facility] No Information 3 No Information [facility], [address], [place], [place], [id number], [place] tel:[phone] Tele [facility] No Information 0 No Information OFFICE/OUTPA TIENT VISIT, EST tracey [facility], [address], [place], [place], [id number], [place] tel:[phone] Tele [facility] f/u (chief complaint) Depression, unspecified depression type 0 No Information [facility], [address], [place], [place], [id number], [place] tel:[phone] [facility] NPP chart update (chief complaint) No Information 0 No Information trace[facility], [address], [place], [place], [id number], [place] tel:[phone] [facility] Dental examination 5 No Information [facility], [address], [place], [place], [id number], [place] tel:[phone] [facility] Dental examination 5 No Information PREV VISIT, EST, AGE 40-64 tracey [facility], [address], [place], [place], [id number], [place] tel:[phone] [facility] Follow up on lab test(s) (chief complaint) preventive exam (chief complaint) ROUTINE MEDICAL EXAM 5 No Information OFFICE/OUTPA TIENT VISIT, [facility], [address], [place], [place], [id number], [place] tel:[phone] [facility] [address] ABSTRA[address] (chief complaint) Tobacco abuseScreenin gPrepatellar bursitis 4 No Information Family History Family Member Type Diagnosis Age At Onset Father Problem (finding) diabetes mellitus type 2 Mother Problem (finding) hypertension Father Problem (finding) hypertension Mother Problem (finding) diabetes mellitus type 2 Payers Payer name Insurance type Covered democrat ID Authoriza diana(s) [facility] [id number] Social History Type Description Quantity Date Captured Comments Alcohol Use Details Unknown Caffeine Use Details Unknown Tobacco Use Status Smoking Status No Information Sex Male Chief Complaint And Reason For Visit No Information Reason For Referral Reason For Referral No Information Plan Of Treatment Date Type Action Status Goal Hemoglobin A1C. Due on due Goal ELECTROCARDIOGRAM, COMPLETE. Due on due Goal Influenza vaccine. Due on due Goal CT-Colonography. Due on due Goal Zoster vaccine (1st). Due on due Goal Tdap. Due on due Goal Unhealthy drug use screening . Due on due Goal FIT-DNA. Due on due Goal FOBT. Due on due Goal Colonoscopy. Due on 023 due Goal Td vaccine. Due on 23 due Goal Diabetes Screening. Due on M due Goal APE. Due on due Goal Document SOGI Information. D ue on due Goal Hepatitis C Screening. Due o n due Goal Lipid Panel. Due on 023 due Goal BPRS. Due on due Goal Lipid Panel. Due on 015 due Goal Colonoscopy. Due on due Goal Td vaccine. Due on due Goal APE. Due on due Goal Tdap. Due on due Goal Hepatitis C Screening. Due o n due Goal Influenza vaccine. Due on due Goal Document SOGI Information. D ue on due Goal Diabetes Screening. Due on due Goal FOBT. Due on due Goal ELECTROCARDIOGRAM, COMPLETE. Due on due Goal Hemoglobin A1C. Due on due Goal Lipid Panel. Due on due Goal ELECTROCARDIOGRAM, COMPLETE. Due on due Goal Hemoglobin A1C. Due on due Goal Td vaccine. Due on due Goal Hepatitis C Screening. Due o n due Goal Document SOGI Information. D ue on due Goal FOBT. Due on due Goal Colonoscopy. Due on due Goal Influenza vaccine. Due on due Goal APE. Due on due Goal Diabetes Screening. Due on due Goal Tdap. Due on due Goal PHQ-9. Due on du e Goal IAP. Due on due Goal DAST. Due on due Goal Lipid panel. Due on 019 due Goal Td vaccine. Due on 15 due Goal Influenza vaccine. Due on due Goal APE. Due on due Goal Tdap. Due on due History Of Present Illness Encounter Date Complaint History Of Prese nt Illness f/u patient discharg ed end of august from [facility] for [facility] and needs refill meds and will be seeing psych outside of [facility] NPP chart update NPP chart revie w and update Called pt and left VM Sent request to obtain medical records [facility] has [facility] (>[facility]) ED/hospitalizations on multiple centers since 2018 for psych /[facility] ([facility]) will contact [facility] to get records and assist with follow up Pt. consistently lost to contact by [facility], and [facility] Past Medical hx: as noted in problem list As per [facility] ([facility]) records - ADD MDD Recurrent and moderate - 10/16/2019GERD Anxiety Tobacco use PTSD Medication adherence : 2020 medications - as per [facility] medical records ([facility]) - Dosage has been decreased progressively during 2018 and 2019 Lidocaine patch - 0.005 mg Diazepam 5 mg Sertraline 50 mg (100 mg in 2018, 25 mg 2018) Omeprazole 20 mg Trazodone 50 mg Mirtazapine 7.5 mg - last time Sep 2019 Paroxetine 10 mg - last April 2019 Trazodone 50 mg Oct 2019 , (100 mg 2018 , 150 mg jun 2019 ) As per pharmacy staff Pt. has not filled Rx at this pharmacy since last year. ([facility] ) Lorazepam 1 mg Trazodone 100 mg Atomoxetine 25 mg Adderal 20 mg - last picked up 2018Screening tests: Vaccines: Active concerns: as noted in ROS Completed today: preventive exam Men's preventive visit. 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 smokes cigarettes. c/o pain in bilateral prepatellar area, more on right, plays basket ball. pain on and off. Functional Status Date Functional Assessmen t No Information Instructions Date Instruction Additional Infor mation Recommended to follow healthy di et Related to ROUTINE MEDICAL EXAM Advised to exercise at least 30 minutes a day Related to ROUTINE MEDICAL EXAM Quit smoking Related to ROUTI NE MEDICAL EXAM Assessments Type Assessment Date No Information Patient Care Teams Name Effective Dates (start - stop) Status Members No Information
[2025-01-23 10:03] VITALS: BMI 28.8
[2025-01-23 10:17] VITALS: BP 120/78; PULSE 66; RESP 20; TEMP 36.4; O2SAT 96
--- NOTE | 2025-01-23 10:24 | PC.NURSE ---
lasted smoked and used drugs one weekago
--- NOTE | 2025-01-23 10:53 | HO.ANESPROP2 ---
[facility] Active Problems Active Problems: All Active Problems Medical clearance for psychiatric admission (Acute) Alcohol use disorder (Acute) Cocaine use disorder (Acute) PTSD (post-traumatic stress disorder) (Acute) MDD (major depressive disorder), recurrent episode, moderate (Acute) Erosive esophagitis (Acute) GERD (gastroesophageal reflux disease) (Acute) Homeless (Acute) Past Medical History Medical History (Updated 01/18/25 @ 11:45 by Brian Rabago MD) Homeless Erosive esophagitis GERD (gastroesophageal reflux disease) Family History Family history of problems with anesthesia: No Surgical History Surgical History (Updated 01/23/25 @ 10:25 by Minnie Lynn RN) History of esophagogastroduodenoscopy (EGD) History of Problems with Anesthesia: No Social History Social History Household Members: Children Housing: Apartment Do you presently have visiting nurse or other home services: No Patient Tobacco Use Status: Current everyday Tobacco user Tobacco use type: Cigarette e-Cigarette/Vaping Use: Never Used Second Hand Smoke Exposure: No Substance Use Type: Crack/Cocaine Have you been hit, kicked, punched, or otherwise hurt by someone within the past year? If so, by whom?: No Are you DNR?: No Advance Directives: No Advance Directives Information Provided: Yes service: No Sexual orientation: Straight/Heterosexual Meds Allergies Allergy/AdvReac Type Severity Reaction Status Date / Time No Known Allergies Allergy Verified 01/16/25 23:14 Home Medications ?Medication ?Instructions ?Recorded ?Confirmed ?Last Taken ?Type bismuth subsalicylate 262 mg/15 mL 262 mg PO Q6-8H PRN Stomach Upset 01/17/25 01/17/25 Unknown History oral suspension (Stomach Relief) ergocalciferol (vitamin D2) 1,250 1,250 mcg PO QWEEK 01/17/25 01/17/25 Unknown History mcg (50,000 unit) capsule esomeprazole magnesium 40 mg 40 mg PO BID 01/17/25 01/17/25 Unknown History capsule,delayed release ondansetron 4 mg disintegrating 4 mg PO Q8H PRN nausea/vomiting 01/17/25 01/17/25 Unknown History tablet sertraline 100 mg tablet 100 mg PO DAILY 01/17/25 01/17/25 Unknown History Exam Height,Weight and Vital Signs: Height 5 ft 11 in Weight 93.8 kg Last Vital Signs Temp 97.5 F 01/23/25 10:17 Pulse 66 01/23/25 10:17 Resp 20 01/23/25 10:17 BP 120/78 01/23/25 10:17 Pulse Ox 96 01/23/25 10:17 O2 Del Method Room Air 01/23/25 10:17 Airway Mallampati Class: III TM Dist: >3cm Neck ROM: Full Loose/Missing/Broken Teeth: Yes, Upper and Lower Assessment and Plan Assessment Anesthesia Assessment: Anesthesia Plan Discussed and Chart Reviewed Final Anesthetic Review Family History of Problems with Anesthesia: No History of Problems with Anesthesia: No NPO: Yes ASA Class: III Final Preanesthetic Review: No Changes in Pt Med Stat, Meds/Allgs Chart Reviewed, Consent Obtained/Reviewed and Anes Risks/Benef Reviewed Patient Risk: Intermediate Procedure Risk: Low Anesthetic Plan Anesthetic Plan: TIVA Disposition: Standard PACU
[2025-01-23] MEDS: Lactated Ringers 1,000 ML 50 ML IVCONT (11:00)
--- NOTE | 2025-01-23 11:02 | PM.GIPN ---
Subjective Subjective Date of Service: 01/23/25 Interval History: epigastric and chest discomfort with eating burping, mild nausea Critical Care Time (minutes): 0 Physical Exam Vital Signs: Vital Signs: Last Vital Signs Temp 97.5 F 01/23/25 10:17 Pulse 66 01/23/25 10:17 Resp 20 01/23/25 10:17 BP 120/78 01/23/25 10:17 Pulse Ox 96 01/23/25 10:17 O2 Del Method Room Air 01/23/25 10:17 BMI result Body Mass Index 28.8 EXAM: GENERAL: The patient is well developed and nontoxic. VITAL SIGNS:see workflow HEENT: Nonicteric sclerae, PERRLA, EOMI. Oropharynx clear. Moist mucous membranes. Conjunctivae appear well perfused. No thyroid mass. CHEST: Chest wall is nontender. HEART: Regular rate and rhythm without murmurs. LUNGS: Clear to auscultation bilaterally. ABDOMEN: Soft, positive bowel sounds, nontender, no organomegaly.no flank tenderness SKIN: eczema like rash on hands NEUROLOGIC: Cranial nerves II-XII intact without motor/sensory deficit. Psych: normal affect Procedures Date of Service Date of Service: 01/23/25 Progress Note: A&P Assessment and plan (1) Erosive esophagitis: Status: Acute Assessment and Plan: 1/ odynophagia with epigastric pain, hx of alcohol abuse and esophagitis PLAN: 1/ EGD today for further assessment 2/ cont with PPI and carafate Time Spent With Patient Time: Total time managing care of this patient today ____ minutes. Quality Stroke Does the patient have a stroke diagnosis?: No VTE Prior VTE?: No VTE Risk Level:: Medical - low VTE Device Contraindication: Treatment Not Indicated VTE Drug Contraindication: Treatment Not Indicated
--- NOTE | 2025-01-23 11:03 | MHC.SHP ---
Pre-Procedural Eval Section A - 24 Hr Update-Section A only Date of Service: 01/23/25 The patient is an INPATIENT: Yes The patient has been examined within 24 hours of the surgical procedure. The History & Physical has been completed within 30 days and I have reviewed it.: Yes Section B - Complete if H&P > 30 days Chief Complaint: Epigastric pain Allergies: Allergies Allergy/AdvReac Type Severity Reaction Status Date / Time No Known Allergies Allergy Verified 01/16/25 23:14 Plan Diagnosis/Plan: Unchanged I have reviewed the history and physical and performed a pertinent physical examination on my patient. No changes have occurred unless specified. Time Spent With Patient Time: Total time managing care of this patient today ____ minutes.
--- NOTE | 2025-01-23 11:18 | W.PM.OPN ---
Operative Note Operative Note Date of Service: 01/23/25 Narrative: Procedure Description: EGD Indication: odynophagia, abn ba swallow Anesthesia: MAC FLEXIBLE TRANSORAL UPPER GASTROINTESTINAL ENDOSCOPY UPPER ENDOSCOPY Consent: Indications for the procedure and potential complications of bleeding, perforation, reaction to medications and missed diagnosis were discussed with the patient and informed consent was obtained. Instrument: Olympus GIF H 190 J mid size upper endoscope Monitoring: Vital signs and clinical assessment, continuous EKG monitoring, Pulse oximetry, Carbon Dioxide monitoring and blood pressure monitoring were done throughout the procedure. Procedure: The patient was placed in the left lateral decubitis position and pre-procedure medications were administered and a bite block was placed. The endoscope was inserted into the mouth and advanced under direct vision to the third part of duodenum. A careful inspection was made as the upper endoscope was withdrawn including a retroflexed examination of the proximal stomach; Findings and interventions are described below. Findings: Larynx:normal Esophagus: GE junction at 37 cm, diaphragm hiatus at 37 cm, severe erosive esophagitis for about 5-6 cm with friable and inflammed mucosa with some white patches- bx taken --LEs was incompetent Stomach: patchy erythema . Biopsies were obtained. Grade 2 flap valve on retroflexed examination of the cardia. Duodenum: Normal bulb and descending duodenum, Intervention: Biopsies as noted above, Impression/Findings: gastritis erosive esophagitis, LA grade D patulous GEJ PLAN: cont with high dose PPI e.g pantoprazole 40 mg BID for 3 months then titrate down depending on clinical course with magic mouthwash BID for 2 weeks GERD precautions complete fluconazole course repeat EGD in about 3-4 months
[2025-01-23 11:25] VITALS: BP 104/60; PULSE 68; RESP 20; TEMP 36.4; O2SAT 97
[2025-01-23 11:40] VITALS: BP 114/77; PULSE 63; RESP 20; TEMP 36.4; O2SAT 100
== END | disposition home or self-care (01) ==
PROVIDERS: Visit Provider Internal Medicine Gastroenterology
PROC: 0DJ08ZZ Inspection of Upper Intestinal Tract, Via Natural or Artificial Opening Endoscopic (ICD-10-PCS; CPT 43235; principal; 2025-01-23 14:00)
DX: K29.70 Gastritis, unspecified, without bleeding (principal); K22.10 Ulcer of esophagus without bleeding; K22.4 Dyskinesia of esophagus; R13.10 Dysphagia, unspecified; K21.9 Gastro-esophageal reflux disease without esophagitis; R10.13 Epigastric pain; F19.10 Other psychoactive substance abuse, uncomplicated; F17.210 Nicotine dependence, cigarettes, uncomplicated; Z59.00 Homelessness unspecified
CPT/HCPCS: 43239; 88305; 88312; 88342; J2003; J2704